=== PATIENT | female | born 1940 | race African-American/Black ===

== ENCOUNTER 2018-02-22 12:03 | Inpatient (IN) | payer MEDICARE, OTHER ==
[~2018-02-22] VITALS: Ht 170.2 cm; Wt 99.8 kg
[~2018-02-22 12:03] MED LIST: FUROSEMIDE20 M1 ORAL; GABAPENTIN100 MG ORAL
[2018-02-22 12:52] LABS: BASOPHILS % (AUTO) 2.3 % (0.0-2.0); EOSINOPHILS % (AUTO) 1.2 % (0.0-3.0); HEMATOCRIT 45.5 % (37.0-47.0); HEMOGLOBIN 14.7 G/DL (12.0-16.0); LYMPHOCYTES % (AUTO) 14.3 % (20.0-45.0); MEAN CORPUSCULAR VOLUME 87 FL (80-99); MONOCYTES % (AUTO) 11.5 % (1.0-10.0); NEUTROPHILS % (AUTO) 70.7 % (45.0-75.0); PLATELET COUNT 292 K/UL (150-450); RED BLOOD COUNT 5.26 M/UL (4.20-5.40); RED CELL DISTRIBUTION WIDTH 13.7 % (11.6-14.8); WHITE BLOOD COUNT 6.5 K/UL (4.8-10.8)
[2018-02-22 13:10] LABS: ANION GAP 8 mmol/L (5-15); BLOOD UREA NITROGEN 13 mg/dL (7-18); CALCIUM 9.9 MG/DL (8.5-10.1); CARBON DIOXIDE 33 MMOL/L (21-32); CHLORIDE 96 MMOL/L (98-107); CREATININE 1.3 MG/DL (0.55-1.30); POTASSIUM 3.1 MMOL/L (3.5-5.1); SODIUM 137 MMOL/L (136-145)
[2018-02-22] MEDS ORDERED: POTASSIUM CHLO10 ME3 ORAL (13:20)
[2018-02-22] MEDS ORDERED: GLIMEPIRIDE2 MG ORAL (13:20)
[2018-02-22] MEDS ORDERED: TRAMADOL HCL50 MG ORAL (13:20)
[2018-02-22] MEDS ORDERED: NAPROXEN CR500 MG PO (13:20)
[2018-02-22] MEDS ORDERED: GABAPENTIN300 MG ORAL (13:20)
[2018-02-22 13:21] VITALS: BP 143/75
[2018-02-22 13:26] LABS: ALANINE AMINOTRANSFERASE 22 U/L (12-78); ALBUMIN 3.9 G/DL (3.4-5.0); ALBUMIN/GLOBULIN RATIO 0.7 (1.0-2.7); ALKALINE PHOSPHATASE 109 U/L (46-116); ASPARTATE AMINO TRANSFERASE 19 U/L (15-37); BILIRUBIN,TOTAL 0.5 MG/DL (0.2-1.0); CKMB < 0.5 NG/ML (0.0-3.6); CREATINE KINASE 50 U/L (26-308); PHOSPHORUS 3.2 MG/DL (2.5-4.9)
[2018-02-22 13:48] LABS: APPEARANCE,URINE TURBID; BILIRUBIN, URINE NEGATIVE (NEGATIVE); COLOR,URINE PALE YELLOW; GLUCOSE, URINE (UA) NEGATIVE (NEGATIVE); KETONES,URINE NEGATIVE (NEGATIVE); LEUKOCYTE ESTERASE ,URINE 2+ (NEGATIVE); NITRITE,URINE POSITIVE (NEGATIVE); PH,URINE 6.5 (4.5-8.0); PROTEIN,URINE NEGATIVE (NEGATIVE); UROBILINOGEN,URINE NORMAL MG/DL (0.0-1.0)
--- NOTE | 2018-02-22 14:20 | Emergency Room Report ---
History of Present Illness General Chief Complaint: Generalized Weakness Source: Patient, Family Member, EMS Present Illness HPI This patient is accompanied by her daughter. The patient presents for generalized weakness. The daughter states that she noted that she was not her normal self this morning. She wasn't is articulate. Also, there was concern because when she attempted to stand up from the chair she was unable to get up secondary to weakness. The patient has no specific complaints. She denies chest pain or short of breath. She denies abdominal pain. She denies back pain. She denies dysuria. She is incontinent at baseline. She does have a history of CVA, diabetes and hypertension. She is normally able to ambulate with a cane. There are no other complaints. Allergies: Coded Allergies: CODEINE (Verified Allergy, Unknown, 02/22/18) SULFA (SULFONAMIDE ANTIBIOTICS) (Verified Allergy, Unknown, 02/22/18) Patient History Past Medical History: see triage record, DM, HTN, CVA/TIA, other - HLP Social History: Denies: smoking, alcohol use, drug use Reviewed Nursing Documentation: PMH: Agreed; PSxH: Agreed Nursing Documentation-PMH Hx Cardiac Problems: Yes - stroke Hx Diabetes: Yes Review of Systems All Other Systems: negative except mentioned in HPI Physical Exam Vital Signs Date Time Temp Pulse Resp B/P (MAP) Pulse Ox O2 Delivery O2 Flow Rate FiO2 02/22/18 11:59 98.3 100 16 137/78 100 Room Air 98.2 Sp02 EP Interpretation: reviewed, normal General Appearance: no apparent distress, alert, GCS 15, non-toxic Head: normocephalic, atraumatic Eyes: bilateral eye normal inspection, bilateral eye PERRL ENT: hearing grossly normal, normal pharynx, no angioedema, normal voice Neck: full range of motion, supple/symm/no masses Respiratory: chest non-tender, lungs clear, normal breath sounds, speaking full sentences Cardiovascular #1: regular rate, rhythm, no edema Gastrointestinal: normal bowel sounds, non tender, soft, non-distended, no guarding, no rebound Rectal: deferred Musculoskeletal: normal range of motion, non-tender Neurologic: alert, oriented x3, responsive, motor strength/tone normal, sensory intact, speech normal, other - Non-focal Psychiatric: judgement/insight normal, memory normal, mood/affect normal, no suicidal/homicidal ideation Skin: normal color, no rash, warm/dry, well hydrated Medical Decision Making Diagnostic Impression: Primary Impression: Pyelonephritis Additional Impression: Episode of generalized weakness ER Course This patient is found to have a urinary tract infection. Otherwise, she is well -appearing and nontoxic. She is given broad-spectrum antibiotics and IV fluids. The patient is unable to ambulate and is much weaker than usual. Given the patient's age and chronic medical conditions, I felt that this patient could deteriorate rapidly. I do not feel that she is a candidate for outpatient oral antibiotics. She is admitted for further evaluation, treatment and monitoring. Laboratory Tests Test 02/22/18 12:25 02/22/18 13:15 White Blood Count 6.5 K/UL (4.8-10.8) Red Blood Count 5.26 M/UL (4.20-5.40) Hemoglobin 14.7 G/DL (12.0-16.0) Hematocrit 45.5 % (37.0-47.0) Mean Corpuscular Volume 87 FL (80-99) Mean Corpuscular Hemoglobin 27.9 PG (27.0-31.0) Mean Corpuscular Hemoglobin Concent 32.2 G/DL (32.0-36.0) Red Cell Distribution Width 13.7 % (11.6-14.8) Platelet Count 292 K/UL (150-450) Mean Platelet Volume 11.3 FL (6.5-10.1) H Neutrophils (%) (Auto) 70.7 % (45.0-75.0) Lymphocytes (%) (Auto) 14.3 % (20.0-45.0) L Monocytes (%) (Auto) 11.5 % (1.0-10.0) H Eosinophils (%) (Auto) 1.2 % (0.0-3.0) Basophils (%) (Auto) 2.3 % (0.0-2.0) H Prothrombin Time 10.4 SEC (9.30-11.50) Prothrombin Time INR 1.0 (0.9-1.1) PTT 25 SEC (23-33) Sodium Level 137 MMOL/L (136-145) Potassium Level 3.1 MMOL/L (3.5-5.1) L Chloride Level 96 MMOL/L (98-107) L Carbon Dioxide Level 33 MMOL/L (21-32) H Anion Gap 8 mmol/L (5-15) Blood Urea Nitrogen 13 mg/dL (7-18) Creatinine 1.3 MG/DL (0.55-1.30) Estimate Glomerular Filtration Rate mL/min (>60) Glucose Level 125 MG/DL (74-106) H Lactic Acid Level 1.40 mmol/L (0.4-2.0) Calcium Level 9.9 MG/DL (8.5-10.1) Phosphorus Level 3.2 MG/DL (2.5-4.9) Magnesium Level 1.8 MG/DL (1.8-2.4) Total Bilirubin 0.5 MG/DL (0.2-1.0) Aspartate Amino Transferase (AST) 19 U/L (15-37) Alanine Aminotransferase (ALT) 22 U/L (12-78) Alkaline Phosphatase 109 U/L (46-116) Total Creatine Kinase 50 U/L (26-308) Creatine Kinase MB < 0.5 NG/ML (0.0-3.6) Creatine Kinase MB Relative Index 1.0 Troponin I 0.000 ng/mL (0.000-0.056) Total Protein 9.7 G/DL (6.4-8.2) H Albumin 3.9 G/DL (3.4-5.0) Globulin 5.8 g/dL Albumin/Globulin Ratio 0.7 (1.0-2.7) L Urine Color Pale yellow Urine Appearance Turbid Urine pH 6.5 (4.5-8.0) Urine Specific [place] 1.010 (1.005-1.035) Urine Protein Negative (NEGATIVE) Urine Glucose (UA) Negative (NEGATIVE) Urine Ketones Negative (NEGATIVE) Urine Occult Blood Negative (NEGATIVE) Urine Nitrite Positive (NEGATIVE) H Urine Bilirubin Negative (NEGATIVE) Urine Urobilinogen Normal MG/DL (0.0-1.0) Urine Leukocyte Esterase 2+ (NEGATIVE) H Urine RBC 2-4 /HPF (0 - 2) H Urine WBC Tntc /HPF (0 - 2) H Urine Squamous Epithelial Cells Few /LPF (NONE/OCC) Urine Bacteria Many /HPF (NONE) H EKG Diagnostic Results Rate: tachycardiac Rhythm: other - S.tachycardia ST Segments: no acute changes Rhythm Strip Diag. Results EP Interpretation: yes Rate: 100's Rhythm: no PVC's, no ectopy, other - S.tachycardia Last Vital Signs Date Time Temp Pulse Resp B/P (MAP) Pulse Ox O2 Delivery O2 Flow Rate FiO2 02/22/18 13:21 100 18 143/75 99 Room Air 02/22/18 11:59 98.3 98.2 Disposition: ADMITTED INPATIENT Condition: Serious Holly Crenshaw DO Feb 22, 2018 14:20
[2018-02-22] MEDS ORDERED: cefTRIAXone 1 GM in NS 55 ML IVPB ONE (14:30)
[2018-02-22 15:22] VITALS: BP 152/65
[2018-02-22 16:00] VITALS: BP 141/70
--- NOTE | 2018-02-22 16:45 | Diagnostic Imaging Report ---
Indication: Cough Technique: One view of the chest Comparison: none Findings: No acute infiltrates, effusions, or congestion. Tortuous calcified aorta. Normal heart size. Upper mediastinum unremarkable. Impression: No acute process.
[2018-02-22] MEDS ORDERED: HydrALAZINE 25mg tab ORAL PRN (17:30)
--- NOTE | 2018-02-22 17:35 | History and Physical ---
History of Present Illness General Date patient seen: Feb 22, 2018 Time patient seen: 17:25 Reason for Hospitalization: Generalized Weakness Present Illness HPI Patient is a 77 y/o female with a PMH of T2DM, HTN, h/o CVA in 2013 that presented to the ER for generalized weakness since today. Per family, patient woke up today with generalized weakness and lethargy, which was not at her baseline. Patient was further brought to the ED for this reason and was noted to have a UTI. EKG showed sinus tachycardia and initial troponin was negative. Patient was also noted to have increased bilateral lower extremity swelling for which she states she takes lasix for. Denies h/o CHF, ID. Denies cp, sob, n/v, abdominal pain, flank pain, d/c, f/c. Of note, patient was recently at [facility] for an infected boil to her buttocks last month and was given 10 days of PO ciprofloxacin and is now resolved. Allergies: Coded Allergies: CODEINE (Verified Allergy, Unknown, 02/22/18) SULFA (SULFONAMIDE ANTIBIOTICS) (Verified Allergy, Unknown, 02/22/18) Medication History Scheduled Furosemide* (Lasix*), 20 MG ORAL DAILY, (Reported) Gabapentin* (Gabapentin*), 300 MG ORAL BEDTIME, (Reported) Glimepiride (Glimepiride), 2 MG ORAL BEFORE BREAKFAST, (Reported) Potassium Chloride (Potassium Chloride), 10 MEQ ORAL TWICE A DAY, (Reported) Scheduled PRN Tramadol Hcl* (Ultram*), 50 MG ORAL Q6H PRN for For Pain, (Reported) Miscellaneous Medications Gabapentin* (Gabapentin*), MG ORAL, (Reported) Naproxen Sodium (Naproxen Cr), 500 MG PO, (Reported) Patient History Healthcare decision maker N Resuscitation status Full Code Advanced Directive on File Review of Systems All Other Systems: negative except mentioned in HPI Physical Exam General Appearance: no apparent distress, alert, lethargic HEENT: normocephalic, atraumatic Neck: non-tender, normal alignment, supple Respiratory/Chest: chest wall non-tender, lungs clear, normal breath sounds Cardiovascular/Chest: normal peripheral pulses, normal rate, regular rhythm Abdomen: normal bowel sounds, non tender, soft Extremities: normal range of motion, non-tender, normal inspection, moderate edema Skin Exam: normal pigmentation, warm/dry Neurologic: cd technician II-XII grossly normal, alert, oriented x 3, other - decreased motor strength 3/5 strength to BLE. 4/5 strength to BUE Last 24 Hour Vital Signs Date Time Temp Pulse Resp B/P (MAP) Pulse Ox O2 Delivery O2 Flow Rate FiO2 02/22/18 16:30 98.3 102 18 152/65 94 Room Air 98.2 02/22/18 15:22 102 18 152/65 94 Room Air 02/22/18 13:21 100 18 143/75 99 Room Air 02/22/18 11:59 98.3 100 16 137/78 100 Room Air 98.2 Laboratory Tests Test 02/22/18 12:25 02/22/18 13:15 White Blood Count 6.5 K/UL (4.8-10.8) Red Blood Count 5.26 M/UL (4.20-5.40) Hemoglobin 14.7 G/DL (12.0-16.0) Hematocrit 45.5 % (37.0-47.0) Mean Corpuscular Volume 87 FL (80-99) Mean Corpuscular Hemoglobin 27.9 PG (27.0-31.0) Mean Corpuscular Hemoglobin Concent 32.2 G/DL (32.0-36.0) Red Cell Distribution Width 13.7 % (11.6-14.8) Platelet Count 292 K/UL (150-450) Mean Platelet Volume 11.3 FL (6.5-10.1) H Neutrophils (%) (Auto) 70.7 % (45.0-75.0) Lymphocytes (%) (Auto) 14.3 % (20.0-45.0) L Monocytes (%) (Auto) 11.5 % (1.0-10.0) H Eosinophils (%) (Auto) 1.2 % (0.0-3.0) Basophils (%) (Auto) 2.3 % (0.0-2.0) H Prothrombin Time 10.4 SEC (9.30-11.50) Prothromb Time International Ratio 1.0 (0.9-1.1) Activated Partial Thromboplast Time 25 SEC (23-33) Sodium Level 137 MMOL/L (136-145) Potassium Level 3.1 MMOL/L (3.5-5.1) L Chloride Level 96 MMOL/L (98-107) L Carbon Dioxide Level 33 MMOL/L (21-32) H Anion Gap 8 mmol/L (5-15) Blood Urea Nitrogen 13 mg/dL (7-18) Creatinine 1.3 MG/DL (0.55-1.30) Estimat Glomerular Filtration Rate mL/min (>60) Glucose Level 125 MG/DL (74-106) H Lactic Acid Level 1.40 mmol/L (0.4-2.0) Calcium Level 9.9 MG/DL (8.5-10.1) Phosphorus Level 3.2 MG/DL (2.5-4.9) Magnesium Level 1.8 MG/DL (1.8-2.4) Total Bilirubin 0.5 MG/DL (0.2-1.0) Aspartate Amino Transf (AST/SGOT) 19 U/L (15-37) Alanine Aminotransferase (ALT/SGPT) 22 U/L (12-78) Alkaline Phosphatase 109 U/L (46-116) Total Creatine Kinase 50 U/L (26-308) Creatine Kinase MB < 0.5 NG/ML (0.0-3.6) Creatine Kinase MB Relative Index 1.0 Troponin I 0.000 ng/mL (0.000-0.056) Total Protein 9.7 G/DL (6.4-8.2) H Albumin 3.9 G/DL (3.4-5.0) Globulin 5.8 g/dL Albumin/Globulin Ratio 0.7 (1.0-2.7) L Urine Color Pale yellow Urine Appearance Turbid Urine pH 6.5 (4.5-8.0) Urine Specific [place] 1.010 (1.005-1.035) Urine Protein Negative (NEGATIVE) Urine Glucose (UA) Negative (NEGATIVE) Urine Ketones Negative (NEGATIVE) Urine Occult Blood Negative (NEGATIVE) Urine Nitrite Positive (NEGATIVE) H Urine Bilirubin Negative (NEGATIVE) Urine Urobilinogen Normal MG/DL (0.0-1.0) Urine Leukocyte Esterase 2+ (NEGATIVE) H Urine RBC 2-4 /HPF (0 - 2) H Urine WBC Tntc /HPF (0 - 2) H Urine Squamous Epithelial Cells Few /LPF (NONE/OCC) Urine Bacteria Many /HPF (NONE) H Height (Feet): 5 Height (Inches): 7.00 Weight (Pounds): 220 Assessment/Plan Problem List: (1) H/O: CVA (cerebrovascular accident) ICD Codes: Z86.73 - Personal history of transient ischemic attack (TIA), and cerebral infarction without residual deficits SNOMED: 930182425 (2) HTN (hypertension) ICD Codes: I10 - Essential (primary) hypertension SNOMED: 29965002 (3) T2DM (type 2 diabetes mellitus) ICD Codes: E11.9 - Type 2 diabetes mellitus without complications SNOMED: 11937612 (4) Edema of both legs ICD Codes: R60.0 - Localized edema SNOMED: 58395002, 51673106, 327652295 (5) Pyelonephritis ICD Codes: N12 - Tubulo-interstitial nephritis, not specified as acute or chronic SNOMED: 14002539 (6) Episode of generalized weakness ICD Codes: R53.1 - Weakness SNOMED: 12677572 (7) Peripheral neuropathy ICD Codes: G62.9 - Polyneuropathy, unspecified SNOMED: 165177823 Status: stable, progressing Assessment/Plan - Admit to inpatient - ID consulted - Empiric IV ceftriaxone - F/u urine cx - F/u blood cx - Check TTE - SSi - Check A1c, lipid panel, BNP - Continue home meds including lasix, glimepiride, and gabapentin - PT/OT eval DVT Prophylaxis: SCD, HSQ Code Status: Full Hospital Classification Declaration: Based on this initial evaluation, and depending on the patient's clinical course, I anticipate that this patient will require hospitalization for 2-3 days for pyelonephritis, edema and close respiratory/hemodynamic monitoring. Disposition: Once the patient is stable to leave the hospital, I anticipate the patient will likely be discharged to the following environment: home with HH and family I spent 72 minutes on this patient's case, and 39 minutes were dedicated to counseling and/or care coordination. Discussed with patient/family, nursing staff, SW/IVAN, ID regarding clinical status, treatment course, and disposition planning. Time of note may not reflect time of encounter. Nasra Arciniega NP Feb 22, 2018 17:35
[2018-02-22 20:00] VITALS: BP 133/67
[2018-02-22] MEDS: Heparin 5000 units/ml inj SUBQ SCH (20:36)
[2018-02-22] MEDS: NovoLOG Insulin Flexpen SUBQ SCH (20:37)
--- NOTE | 2018-02-22 20:38 | Infectious Diseases Prog Note ---
Assessment/Plan Assessment/Plan Full consult dictated: A) 1) uti, pyelonephritis, fevers 2) pmh noted 3) allergies - sulfa, codeine P) 1) rocephin 2) check urine culture 3) thank you Subjective Allergies: Coded Allergies: CODEINE (Verified Allergy, Unknown, 02/22/18) SULFA (SULFONAMIDE ANTIBIOTICS) (Verified Allergy, Unknown, 02/22/18) Objective Vital Signs Last 24 Hour Vital Signs Date Time Temp Pulse Resp B/P (MAP) Pulse Ox O2 Delivery O2 Flow Rate FiO2 02/22/18 16:30 98.3 102 18 152/65 94 Room Air 98.2 02/22/18 16:00 99.7 106 20 141/70 97 99.7 02/22/18 15:22 102 18 152/65 94 Room Air 02/22/18 13:21 100 18 143/75 99 Room Air 02/22/18 11:59 98.3 100 16 137/78 100 Room Air 98.2 Height (Feet): 5 Height (Inches): 7.00 Weight (Pounds): 220 Laboratory Tests Test 02/22/18 12:25 02/22/18 13:15 White Blood Count 6.5 K/UL (4.8-10.8) Red Blood Count 5.26 M/UL (4.20-5.40) Hemoglobin 14.7 G/DL (12.0-16.0) Hematocrit 45.5 % (37.0-47.0) Mean Corpuscular Volume 87 FL (80-99) Mean Corpuscular Hemoglobin 27.9 PG (27.0-31.0) Mean Corpuscular Hemoglobin Concent 32.2 G/DL (32.0-36.0) Red Cell Distribution Width 13.7 % (11.6-14.8) Platelet Count 292 K/UL (150-450) Mean Platelet Volume 11.3 FL (6.5-10.1) H Neutrophils (%) (Auto) 70.7 % (45.0-75.0) Lymphocytes (%) (Auto) 14.3 % (20.0-45.0) L Monocytes (%) (Auto) 11.5 % (1.0-10.0) H Eosinophils (%) (Auto) 1.2 % (0.0-3.0) Basophils (%) (Auto) 2.3 % (0.0-2.0) H Prothrombin Time 10.4 SEC (9.30-11.50) Prothromb Time International Ratio 1.0 (0.9-1.1) Activated Partial Thromboplast Time 25 SEC (23-33) Sodium Level 137 MMOL/L (136-145) Potassium Level 3.1 MMOL/L (3.5-5.1) L Chloride Level 96 MMOL/L (98-107) L Carbon Dioxide Level 33 MMOL/L (21-32) H Anion Gap 8 mmol/L (5-15) Blood Urea Nitrogen 13 mg/dL (7-18) Creatinine 1.3 MG/DL (0.55-1.30) Estimat Glomerular Filtration Rate mL/min (>60) Glucose Level 125 MG/DL (74-106) H Lactic Acid Level 1.40 mmol/L (0.4-2.0) Calcium Level 9.9 MG/DL (8.5-10.1) Phosphorus Level 3.2 MG/DL (2.5-4.9) Magnesium Level 1.8 MG/DL (1.8-2.4) Total Bilirubin 0.5 MG/DL (0.2-1.0) Aspartate Amino Transf (AST/SGOT) 19 U/L (15-37) Alanine Aminotransferase (ALT/SGPT) 22 U/L (12-78) Alkaline Phosphatase 109 U/L (46-116) Total Creatine Kinase 50 U/L (26-308) Creatine Kinase MB < 0.5 NG/ML (0.0-3.6) Creatine Kinase MB Relative Index 1.0 Troponin I 0.000 ng/mL (0.000-0.056) Total Protein 9.7 G/DL (6.4-8.2) H Albumin 3.9 G/DL (3.4-5.0) Globulin 5.8 g/dL Albumin/Globulin Ratio 0.7 (1.0-2.7) L Urine Color Pale yellow Urine Appearance Turbid Urine pH 6.5 (4.5-8.0) Urine Specific [place] 1.010 (1.005-1.035) Urine Protein Negative (NEGATIVE) Urine Glucose (UA) Negative (NEGATIVE) Urine Ketones Negative (NEGATIVE) Urine Occult Blood Negative (NEGATIVE) Urine Nitrite Positive (NEGATIVE) H Urine Bilirubin Negative (NEGATIVE) Urine Urobilinogen Normal MG/DL (0.0-1.0) Urine Leukocyte Esterase 2+ (NEGATIVE) H Urine RBC 2-4 /HPF (0 - 2) H Urine WBC Tntc /HPF (0 - 2) H Urine Squamous Epithelial Cells Few /LPF (NONE/OCC) Urine Bacteria Many /HPF (NONE) H Current Medications Medications (Trade) Dose Ordered Sig/Farnaz Route PRN Reason Start Time Stop Time Status Last Admin Dose Admin Acetaminophen (Tylenol) 650 mg Q6H PRN ORAL Mild Pain/Temp > 100.5 02/22/18 17:30 03/24/18 17:29 Ceftriaxone Sodium 1 gm/ Dextrose 110 ml @ 220 mls/hr Q24H IVPB 02/23/18 14:00 03/02/18 13:59 Dextrose (Dextrose 50%) 25 ml STAT PRN IV Hypoglycemia 02/22/18 18:00 03/24/18 17:59 Dextrose (Dextrose 50%) 50 ml STAT PRN IV Hypoglycemia 02/22/18 18:00 03/24/18 17:59 Furosemide (Lasix) 20 mg DAILY ORAL 02/23/18 09:00 03/25/18 08:59 Gabapentin (Neurontin) 300 mg BEDTIME ORAL 02/22/18 21:00 03/24/18 20:59 Glimepiride (Amaryl) 2 mg ACBREAKFAST ORAL 02/23/18 06:30 03/25/18 06:29 Heparin Sodium (Porcine) (Heparin 5000 units/ml) 5,000 units EVERY 12 HOURS SUBQ 02/22/18 21:00 03/24/18 20:59 Hydralazine HCl (Apresoline) 25 mg Q6H PRN ORAL SBP > 160mmHg 02/22/18 17:30 03/24/18 17:29 Insulin Aspart (NovoLOG) BEFORE MEALS AND HS SUBQ 02/22/18 21:00 03/24/18 20:59 Potassium Chloride (K-Dur) 10 meq TWICE A DAY ORAL 02/22/18 18:00 03/24/18 17:59 02/22/18 18:10 Sodium Chloride 1,000 ml @ 75 mls/hr [id number] IV 02/22/18 18:00 03/24/18 17:59 02/22/18 18:10 Lucho Friedman MD Feb 22, 2018 20:38
--- NOTE | 2018-02-22 22:02 | Consultation ---
History of Present Illness General Date patient seen: Feb 22, 2018 Chief Complaint: Generalized Weakness Present Illness HPI 77 y/o female with a PMH of T2DM, HTN, CVApresented to the ER for generalized weakness and lethargy. the pt had waxing and waning of consciousness however she has cleared up and was lucid during my evaluation Allergies: Coded Allergies: CODEINE (Verified Allergy, Unknown, 02/22/18) SULFA (SULFONAMIDE ANTIBIOTICS) (Verified Allergy, Unknown, 02/22/18) Medication History Scheduled Furosemide* (Lasix*), 20 MG ORAL DAILY, (Reported) Gabapentin* (Gabapentin*), 300 MG ORAL BEDTIME, (Reported) Glimepiride (Glimepiride), 2 MG ORAL BEFORE BREAKFAST, (Reported) Potassium Chloride (Potassium Chloride), 10 MEQ ORAL TWICE A DAY, (Reported) Scheduled PRN Tramadol Hcl* (Ultram*), 50 MG ORAL Q6H PRN for For Pain, (Reported) Miscellaneous Medications Gabapentin* (Gabapentin*), MG ORAL, (Reported) Naproxen Sodium (Naproxen Cr), 500 MG PO, (Reported) Patient History Limited by: medical condition History Provided By: Patient, Medical Record Healthcare decision maker N Resuscitation status Full Code Advanced Directive on File Past Medical/Surgical History Past Medical/Surgical History: (1) Pyelonephritis (2) HTN (hypertension) (3) Edema of both legs (4) T2DM (type 2 diabetes mellitus) (5) Episode of generalized weakness (6) H/O: CVA (cerebrovascular accident) (7) Peripheral neuropathy Review of Systems Psychiatric: Reports: prior hx, anxiety Physical Exam General Appearance: no apparent distress, alert Neurologic: oriented x 3, responsive Last 24 Hour Vital Signs Date Time Temp Pulse Resp B/P (MAP) Pulse Ox O2 Delivery O2 Flow Rate FiO2 02/22/18 20:00 98.7 101 17 133/67 95 Room Air 98.7 02/22/18 16:30 98.3 102 18 152/65 94 Room Air 98.2 02/22/18 16:00 99.7 106 20 141/70 97 99.7 02/22/18 15:22 102 18 152/65 94 Room Air 02/22/18 13:21 100 18 143/75 99 Room Air 02/22/18 11:59 98.3 100 16 137/78 100 Room Air 98.2 Laboratory Tests Test 02/22/18 12:25 02/22/18 13:15 White Blood Count 6.5 K/UL (4.8-10.8) Red Blood Count 5.26 M/UL (4.20-5.40) Hemoglobin 14.7 G/DL (12.0-16.0) Hematocrit 45.5 % (37.0-47.0) Mean Corpuscular Volume 87 FL (80-99) Mean Corpuscular Hemoglobin 27.9 PG (27.0-31.0) Mean Corpuscular Hemoglobin Concent 32.2 G/DL (32.0-36.0) Red Cell Distribution Width 13.7 % (11.6-14.8) Platelet Count 292 K/UL (150-450) Mean Platelet Volume 11.3 FL (6.5-10.1) H Neutrophils (%) (Auto) 70.7 % (45.0-75.0) Lymphocytes (%) (Auto) 14.3 % (20.0-45.0) L Monocytes (%) (Auto) 11.5 % (1.0-10.0) H Eosinophils (%) (Auto) 1.2 % (0.0-3.0) Basophils (%) (Auto) 2.3 % (0.0-2.0) H Prothrombin Time 10.4 SEC (9.30-11.50) Prothromb Time International Ratio 1.0 (0.9-1.1) Activated Partial Thromboplast Time 25 SEC (23-33) Sodium Level 137 MMOL/L (136-145) Potassium Level 3.1 MMOL/L (3.5-5.1) L Chloride Level 96 MMOL/L (98-107) L Carbon Dioxide Level 33 MMOL/L (21-32) H Anion Gap 8 mmol/L (5-15) Blood Urea Nitrogen 13 mg/dL (7-18) Creatinine 1.3 MG/DL (0.55-1.30) Estimat Glomerular Filtration Rate mL/min (>60) Glucose Level 125 MG/DL (74-106) H Lactic Acid Level 1.40 mmol/L (0.4-2.0) Calcium Level 9.9 MG/DL (8.5-10.1) Phosphorus Level 3.2 MG/DL (2.5-4.9) Magnesium Level 1.8 MG/DL (1.8-2.4) Total Bilirubin 0.5 MG/DL (0.2-1.0) Aspartate Amino Transf (AST/SGOT) 19 U/L (15-37) Alanine Aminotransferase (ALT/SGPT) 22 U/L (12-78) Alkaline Phosphatase 109 U/L (46-116) Total Creatine Kinase 50 U/L (26-308) Creatine Kinase MB < 0.5 NG/ML (0.0-3.6) Creatine Kinase MB Relative Index 1.0 Troponin I 0.000 ng/mL (0.000-0.056) Total Protein 9.7 G/DL (6.4-8.2) H Albumin 3.9 G/DL (3.4-5.0) Globulin 5.8 g/dL Albumin/Globulin Ratio 0.7 (1.0-2.7) L Urine Color Pale yellow Urine Appearance Turbid Urine pH 6.5 (4.5-8.0) Urine Specific [place] 1.010 (1.005-1.035) Urine Protein Negative (NEGATIVE) Urine Glucose (UA) Negative (NEGATIVE) Urine Ketones Negative (NEGATIVE) Urine Occult Blood Negative (NEGATIVE) Urine Nitrite Positive (NEGATIVE) H Urine Bilirubin Negative (NEGATIVE) Urine Urobilinogen Normal MG/DL (0.0-1.0) Urine Leukocyte Esterase 2+ (NEGATIVE) H Urine RBC 2-4 /HPF (0 - 2) H Urine WBC Tntc /HPF (0 - 2) H Urine Squamous Epithelial Cells Few /LPF (NONE/OCC) Urine Bacteria Many /HPF (NONE) H Height (Feet): 5 Height (Inches): 7.00 Weight (Pounds): 220 Medications Current Medications Medications (Trade) Dose Ordered Sig/Farnaz Route PRN Reason Start Time Stop Time Status Last Admin Dose Admin Acetaminophen (Tylenol) 650 mg Q6H PRN ORAL Mild Pain/Temp > 100.5 02/22/18 17:30 03/24/18 17:29 Ceftriaxone Sodium 1 gm/ Dextrose 110 ml @ 220 mls/hr Q24H IVPB 02/23/18 14:00 03/02/18 13:59 Dextrose (Dextrose 50%) 25 ml STAT PRN IV Hypoglycemia 02/22/18 18:00 03/24/18 17:59 Dextrose (Dextrose 50%) 50 ml STAT PRN IV Hypoglycemia 02/22/18 18:00 03/24/18 17:59 Furosemide (Lasix) 20 mg DAILY ORAL 02/23/18 09:00 03/25/18 08:59 Gabapentin (Neurontin) 300 mg BEDTIME ORAL 02/22/18 21:00 03/24/18 20:59 02/22/18 20:35 Glimepiride (Amaryl) 2 mg ACBREAKFAST ORAL 02/23/18 06:30 03/25/18 06:29 Heparin Sodium (Porcine) (Heparin 5000 units/ml) 5,000 units EVERY 12 HOURS SUBQ 02/22/18 21:00 03/24/18 20:59 02/22/18 20:36 Hydralazine HCl (Apresoline) 25 mg Q6H PRN ORAL SBP > 160mmHg 02/22/18 17:30 03/24/18 17:29 Insulin Aspart (NovoLOG) BEFORE MEALS AND HS SUBQ 02/22/18 21:00 03/24/18 20:59 02/22/18 20:37 Potassium Chloride (K-Dur) 10 meq TWICE A DAY ORAL 02/22/18 18:00 03/24/18 17:59 02/22/18 18:10 Sodium Chloride 1,000 ml @ 75 mls/hr [id number] IV 02/22/18 18:00 03/24/18 17:59 02/22/18 18:10 Assessment/Plan Status: stable, progressing Assessment/Plan encephalopathy anxiety -no meds -will reeval Susanne Neal M.D. Feb 22, 2018 22:02
[2018-02-23] VITALS: BP 144/71
--- NOTE | 2018-02-23 03:30 | Consultation ---
DATE OF CONSULTATION: 02/22/2018 INFECTIOUS DISEASE CONSULTATION CONSULTING PHYSICIAN: Lucho Friedman M.D. ATTENDING PHYSICIAN: Adelfo Hooper M.D. REFERRING PHYSICIAN: Adelfo Hooper M.D. REASON FOR CONSULTATION: Pyelonephritis, urinary tract infection, generalized weakness, and fevers. CHIEF COMPLAINT: The patient's chief complaint coming in to the hospital is generalized weakness unable to ambulate. HISTORY OF PRESENT ILLNESS: This is a 77-year-old female, who comes in to [facility] with generalized weakness and decreased gait or inability to ambulate. The patient was noted to have a significantly positive urinalysis likely has urinary tract infection, pyelonephritis, and fevers. The patient also had elevated heart rate and possible early sepsis. Infectious Disease consultation is requested for antibiotic management. The patient is currently on Rocephin 1 g IV q.24 hours. Urine culture is pending. The patient's urinalysis had too many to count white blood cells. I discussed with the patient. She has generalized weakness. Brother was not a very good historian. MAR was noted. Orders were noted. Notes were reviewed. Case was discussed with RN. Case was communicated with Cass Sky, nurse practitioner. REVIEW OF SYSTEMS: CONSTITUTIONAL: She has generalized fatigue, weakness, unable to ambulate. HEAD AND NECK: No head pain, neck pain, thrush, dysphagia, or sinus tenderness. No change in vision. No sinus tenderness. No weight loss or night sweats. She does have fevers. No chills at this time. CARDIAC: No chest pain or palpitations. GASTROINTESTINAL: No nausea, vomiting, or diarrhea. GENITOURINARY: She has may be some dysuria with no CVA tenderness. May be some frequency of urination. PULMONARY: No congestion, shortness of breath, hemoptysis, or secretions. SKIN: No rash or itching. EXTREMITIES: No extremity pain. NEUROLOGIC: No seizures. PAST MEDICAL HISTORY: The patient's past medical history includes history of the following. The patient has a past medical history of type 2 diabetes mellitus, history of hypertension, history of CVA, history of transient ischemic attack, and history of hyperlipidemia. ALLERGIES: Codeine and sulfa drugs. SOCIAL HISTORY: Negative for smoking, alcohol, or drug abuse. FAMILY HISTORY: Noncontributory. No mention of exposure to tuberculosis or cancer per the records. MEDICATIONS: Upon reviewing the MAR, she is on the following medications, she is on Rocephin, furosemide, Amaryl, heparin, Neurontin, NovoLog insulin, K-Dur, intravenous fluids, hydralazine, aand acetaminophen. Outside medications noted and reconciliated. Antibiotics include Rocephin 1 g intravenous q.24 hours. PHYSICAL EXAMINATION: VITAL SIGNS: Temperature is 99.7, pulse rate as high as 106, respiratory rate is 18, saturation 94%, and blood pressure 152/65. Pulse 72, temperature 98.3. GENERAL: She is arousable and responsive. She has generalized weakness. HEAD AND NECK: Oral exam, no thrush. Eye exam, no icterus. Cranial nerve exam is intact. No jugular venous distention. Normocephalic. Neck is supple. No icterus or thrush. HEART: Regular. No obvious gallop or murmur. No friction rub. ABDOMEN: Soft. Positive bowel sounds. Nontender. No organomegaly. LUNGS: Clear bilaterally. No rhonchi or rales. SKIN: No rash. MUSCULOSKELETAL: No effusion. Legs are without cellulitis. PERIPHERAL VASCULAR: No cyanosis or gangrene. GENITOURINARY: She has no CVA tenderness. No Salazar. LINES: Line sites without phlebitis. NEUROLOGIC: Generalized weakness and responsive. LABORATORY AND DIAGNOSTIC DATA: Laboratory data is as follows, potassium 3.1, creatinine 1.3. LFTs were noted. White count 6.5, hemoglobin 14.7. UA had 2+ leukocyte esterase, too many to count white blood cells, and many bacteria. Cultures are pending. IMAGING STUDIES: The patient's chest x-ray shows no pneumonia, no consolidation. No acute process noted reviewed. ASSESSMENT AND PLAN: 1. The patient has urinary tract infection/pyelonephritis, and complicated urinary tract infection with generalized weakness. She also came in with lethargy and weakness, rule out early sepsis with tachycardia and fevers. At this time, I agree with Rocephin 1 g intravenous q.24 h. for Gram-negative urinary tract infection coverage. Check urine culture. Watch laboratories. Watch the patient's mental status. Check blood cultures also. Case was discussed with the RN. Continue Rocephin 1 g intravenous q.24 hours pending final workup. 2. The patient has history of diabetes type 2. Blood sugar treatment per primary. 3. Hypertension. Blood pressure treatment per primary. 4. CVA. 5. TIA 6. Hyperlipidemia. 7. Hypokalemia. 8. Allergy to codeine and sulfa. 9. MAR was noted. 10. Case was discussed with RN. 11. Social history is negative. 12. Family history is noncontributory. 13. Case will be discussed with Cass Sky, nurse practitioner. 14. Skin care protocol. 15. Continue treatment per primary consultants. 16. Orders were entered and noted. Lucho Friedman M.D. DR: DEMIAN JOB#: [id number] CC: JAMIE
[2018-02-23 04:00] VITALS: BP 131/67
[2018-02-23] MEDS: Glimepiride 1mg tab ORAL SCH (05:54)
[2018-02-23] MEDS: NovoLOG Insulin Flexpen SUBQ SCH ×4 (05:55→21:20)
[2018-02-23 06:47] LABS: BASOPHILS % (AUTO) 2.5 % (0.0-2.0); EOSINOPHILS % (AUTO) 1.6 % (0.0-3.0); HEMATOCRIT 35.9 % (37.0-47.0); HEMOGLOBIN 11.6 G/DL (12.0-16.0); LYMPHOCYTES % (AUTO) 40.8 % (20.0-45.0); MEAN CORPUSCULAR VOLUME 87 FL (80-99); MONOCYTES % (AUTO) 17.4 % (1.0-10.0); NEUTROPHILS % (AUTO) 37.6 % (45.0-75.0); PLATELET COUNT 204 K/UL (150-450); RED BLOOD COUNT 4.12 M/UL (4.20-5.40); WHITE BLOOD COUNT 3.8 K/UL (4.8-10.8)
[2018-02-23 07:15] LABS: ANION GAP 7 mmol/L (5-15); BLOOD UREA NITROGEN 9 mg/dL (7-18); CALCIUM 8.4 MG/DL (8.5-10.1); CARBON DIOXIDE 31 MMOL/L (21-32); CHLORIDE 101 MMOL/L (98-107); CHOLESTEROL 184 MG/DL (< 200); CREATININE 1.1 MG/DL (0.55-1.30); HDL CHOLESTEROL 44 MG/DL (40-60); POTASSIUM 2.9 MMOL/L (3.5-5.1); SODIUM 139 MMOL/L (136-145); TRIGLYCERIDES 72 MG/DL (30-150)
[2018-02-23 08:00] VITALS: BP 118/63
[2018-02-23] MEDS: Heparin 5000 units/ml inj SUBQ SCH ×2 (09:07→21:20)
--- NOTE | 2018-02-23 11:41 | General Progress Note ---
Assessment/Plan Assessment/Plan encephalopathy anxiety -no meds -will reeval Subjective Date patient seen: Feb 23, 2018 Neurologic/Psychiatric: Reports: anxiety, emotional problems Allergies: Coded Allergies: CODEINE (Verified Allergy, Unknown, 02/22/18) SULFA (SULFONAMIDE ANTIBIOTICS) (Verified Allergy, Unknown, 02/22/18) Subjective the pt is calm and more lucid. participated in pt Objective Last 24 Hour Vital Signs Date Time Temp Pulse Resp B/P (MAP) Pulse Ox O2 Delivery O2 Flow Rate FiO2 02/23/18 04:00 98.9 97 17 131/67 96 Room Air 98.9 02/23/18 00:00 98.3 94 16 144/71 95 Room Air 98.3 02/22/18 20:00 98.7 101 17 133/67 95 Room Air 98.7 02/22/18 16:30 98.3 102 18 152/65 94 Room Air 98.2 02/22/18 16:00 99.7 106 20 141/70 97 99.7 02/22/18 15:22 102 18 152/65 94 Room Air 02/22/18 13:21 100 18 143/75 99 Room Air 02/22/18 11:59 98.3 100 16 137/78 100 Room Air 98.2 Intake and Output 02/22/18 02/23/18 19:00 07:00 Intake Total 1130 ml 945 ml Balance 1130 ml 945 ml Intake Oral 0 ml 120 ml IV Total 1130 ml 825 ml # Voids 2 Laboratory Tests 02/22/18 12:25: White Blood Count 6.5, Red Blood Count 5.26, Hemoglobin 14.7, Hematocrit 45.5, Mean Corpuscular Volume 87, Mean Corpuscular Hemoglobin 27.9, Mean Corpuscular Hemoglobin Concent 32.2, Red Cell Distribution Width 13.7, Platelet Count 292, Mean Platelet Volume 11.3H, Neutrophils (%) (Auto) 70.7, Lymphocytes (%) (Auto) 14.3L, Monocytes (%) (Auto) 11.5H, Eosinophils (%) (Auto) 1.2, Basophils (%) ( Auto) 2.3H, Prothrombin Time 10.4, Prothromb Time International Ratio 1.0, Activated Partial Thromboplast Time 25, Sodium Level 137, Potassium Level 3.1L, Chloride Level 96L, Carbon Dioxide Level 33H, Anion Gap 8, Blood Urea Nitrogen 13, Creatinine 1.3, Estimat Glomerular Filtration Rate , Glucose Level 125H, Lactic Acid Level 1.40, Calcium Level 9.9, Phosphorus Level 3.2, Magnesium Level 1.8, Total Bilirubin 0.5, Aspartate Amino Transf (AST/SGOT) 19, Alanine Aminotransferase (ALT/SGPT) 22, Alkaline Phosphatase 109, Total Creatine Kinase 50, Creatine Kinase MB < 0.5, Creatine Kinase MB Relative Index 1.0, Troponin I 0.000, Total Protein 9.7H, Albumin 3.9, Globulin 5.8, Albumin/Globulin Ratio 0.7L 02/22/18 13:15: Urine Color Pale yellow, Urine Appearance Turbid, Urine pH 6.5, Urine Specific [place] 1.010, Urine Protein Negative, Urine Glucose (UA) Negative, Urine Ketones Negative, Urine Occult Blood Negative, Urine Nitrite PositiveH, Urine Bilirubin Negative, Urine Urobilinogen Normal, Urine Leukocyte Esterase 2+H, Urine RBC 2-4H, Urine WBC TntcH, Urine Squamous Epithelial Cells Few, Urine Bacteria ManyH 02/23/18 05:25: White Blood Count 3.8L, Red Blood Count 4.12L, Hemoglobin 11.6L, Hematocrit 35.9L, Mean Corpuscular Volume 87, Mean Corpuscular Hemoglobin 28.0, Mean Corpuscular Hemoglobin Concent 32.2, Red Cell Distribution Width 14.0, Platelet Count 204, Mean Platelet Volume 9.7, Neutrophils (%) (Auto) 37.6L, Lymphocytes ( %) (Auto) 40.8, Monocytes (%) (Auto) 17.4H, Eosinophils (%) (Auto) 1.6, Basophils (%) (Auto) 2.5H, Sodium Level 139, Potassium Level 2.9L, Chloride Level 101, Carbon Dioxide Level 31, Anion Gap 7, Blood Urea Nitrogen 9, Creatinine 1.1, Estimat Glomerular Filtration Rate , Glucose Level 119H, Calcium Level 8.4L, Hemoglobin A1c 8.6H, Pro-B-Type Natriuretic Peptide 216H, Triglycerides Level 72, Cholesterol Level 184, LDL Cholesterol 137H, HDL Cholesterol 44, Cholesterol/HDL Ratio 4.2 Height (Feet): 5 Height (Inches): 7.00 Weight (Pounds): 220 General Appearance: WD/WN, no apparent distress, alert Neurologic: oriented x 3, responsive, depressed affect Susanne Neal M.D. Feb 23, 2018 11:41
[2018-02-23 12:00] VITALS: BP 126/73
--- NOTE | 2018-02-23 13:18 | Infectious Diseases Prog Note ---
Assessment/Plan Assessment/Plan ASSESSMENT AND PLAN: 1. uti/pyelonephritis, possible sepsis, lethargy, generalized weakness - clinically more alert, fevers resolved - continue Rocephin - day # 2 - check urine culture, blood cultures, labs 2. The patient has history of diabetes type 2. Blood sugar treatment per primary. 3. Hypertension. Blood pressure treatment per primary. 4. CVA. 5. TIA 6. Hyperlipidemia. 7. Hypokalemia. 8. Allergy to codeine and sulfa. 9. MAR was noted. 10. Case was discussed with RN. 11. Social history is negative. 12. Family history is noncontributory. 13. Discussed with Nasra Arciniega NP 14. Skin care protocol. 15. Continue treatment per primary consultants. 16. Orders were entered and noted. Subjective Constitutional: Reports: fatigue, other - moer alert; Denies: fever HEENT: Denies: congestion Respiratory: Denies: shortness of breath Cardiovascular: Denies: chest pain Gastrointestinal/Abdominal: Denies: nausea, vomiting, diarrhea Genitourinary: Reports: other - no linda Neurologic: Reports: weakness - general weakness; Denies: headache Psychiatric: Denies: depression Skin: Denies: rash Hematologic: Denies: bleeding Musculoskeletal: Denies: pain Allergies: Coded Allergies: CODEINE (Verified Allergy, Unknown, 02/22/18) SULFA (SULFONAMIDE ANTIBIOTICS) (Verified Allergy, Unknown, 02/22/18) Objective Vital Signs Last 24 Hour Vital Signs Date Time Temp Pulse Resp B/P (MAP) Pulse Ox O2 Delivery O2 Flow Rate FiO2 02/23/18 04:00 98.9 97 17 131/67 96 Room Air 98.9 02/23/18 00:00 98.3 94 16 144/71 95 Room Air 98.3 02/22/18 20:00 98.7 101 17 133/67 95 Room Air 98.7 02/22/18 16:30 98.3 102 18 152/65 94 Room Air 98.2 02/22/18 16:00 99.7 106 20 141/70 97 99.7 02/22/18 15:22 102 18 152/65 94 Room Air 02/22/18 13:21 100 18 143/75 99 Room Air Height (Feet): 5 Height (Inches): 7.00 Weight (Pounds): 220 General Appearance: no acute distress, other - more alert HEENT: normocephalic, atraumatic, anicteric, mucous membranes moist Respiratory/Chest: lungs clear, normal breath sounds, no respiratory distress, no accessory muscle use Cardiovascular: normal rate, regular rhythm, no gallop/murmur, no JVD Abdomen: normal bowel sounds, soft, non tender, no organomegaly, non distended Genitourinary: other - no sob Extremities: no cyanosis Skin: no rash Neurologic/Psychiatric: hyperbaric technologist II-XII grossly normal, alert, responsive Lymphatic: no neck adenopathy Musculoskeletal: no effusion Objective Chest x-ray - NAD (reviewed, report noted) Pending Laboratory Tests Test 02/22/18 13:15 02/23/18 05:25 Urine Color Pale yellow Urine Appearance Turbid Urine pH 6.5 (4.5-8.0) Urine Specific [place] 1.010 (1.005-1.035) Urine Protein Negative (NEGATIVE) Urine Glucose (UA) Negative (NEGATIVE) Urine Ketones Negative (NEGATIVE) Urine Occult Blood Negative (NEGATIVE) Urine Nitrite Positive (NEGATIVE) H Urine Bilirubin Negative (NEGATIVE) Urine Urobilinogen Normal MG/DL (0.0-1.0) Urine Leukocyte Esterase 2+ (NEGATIVE) H Urine RBC 2-4 /HPF (0 - 2) H Urine WBC Tntc /HPF (0 - 2) H Urine Squamous Epithelial Cells Few /LPF (NONE/OCC) Urine Bacteria Many /HPF (NONE) H White Blood Count 3.8 K/UL (4.8-10.8) L Red Blood Count 4.12 M/UL (4.20-5.40) L Hemoglobin 11.6 G/DL (12.0-16.0) L Hematocrit 35.9 % (37.0-47.0) L Mean Corpuscular Volume 87 FL (80-99) Mean Corpuscular Hemoglobin 28.0 PG (27.0-31.0) Mean Corpuscular Hemoglobin Concent 32.2 G/DL (32.0-36.0) Red Cell Distribution Width 14.0 % (11.6-14.8) Platelet Count 204 K/UL (150-450) Mean Platelet Volume 9.7 FL (6.5-10.1) Neutrophils (%) (Auto) 37.6 % (45.0-75.0) L Lymphocytes (%) (Auto) 40.8 % (20.0-45.0) Monocytes (%) (Auto) 17.4 % (1.0-10.0) H Eosinophils (%) (Auto) 1.6 % (0.0-3.0) Basophils (%) (Auto) 2.5 % (0.0-2.0) H Sodium Level 139 MMOL/L (136-145) Potassium Level 2.9 MMOL/L (3.5-5.1) L Chloride Level 101 MMOL/L (98-107) Carbon Dioxide Level 31 MMOL/L (21-32) Anion Gap 7 mmol/L (5-15) Blood Urea Nitrogen 9 mg/dL (7-18) Creatinine 1.1 MG/DL (0.55-1.30) Estimat Glomerular Filtration Rate mL/min (>60) Glucose Level 119 MG/DL (74-106) H Hemoglobin A1c 8.6 % (4.3-6.0) H Calcium Level 8.4 MG/DL (8.5-10.1) L Pro-B-Type Natriuretic Peptide 216 pg/mL (0-125) H Triglycerides Level 72 MG/DL (30-150) Cholesterol Level 184 MG/DL (< 200) LDL Cholesterol 137 mg/dL (<100) H HDL Cholesterol 44 MG/DL (40-60) Cholesterol/HDL Ratio 4.2 (3.3-4.4) Current Medications Medications (Trade) Dose Ordered Sig/Farnaz Route PRN Reason Start Time Stop Time Status Last Admin Dose Admin Acetaminophen (Tylenol) 650 mg Q6H PRN ORAL Mild Pain/Temp > 100.5 02/22/18 17:30 03/24/18 17:29 Ceftriaxone Sodium 1 gm/ Dextrose 110 ml @ 220 mls/hr Q24H IVPB 02/23/18 14:00 03/02/18 13:59 Dextrose (Dextrose 50%) 25 ml STAT PRN IV Hypoglycemia 02/22/18 18:00 03/24/18 17:59 Dextrose (Dextrose 50%) 50 ml STAT PRN IV Hypoglycemia 02/22/18 18:00 03/24/18 17:59 Furosemide (Lasix) 20 mg DAILY ORAL 02/23/18 09:00 03/25/18 08:59 02/23/18 09:06 Gabapentin (Neurontin) 300 mg BEDTIME ORAL 02/22/18 21:00 03/24/18 20:59 02/22/18 20:35 Glimepiride (Amaryl) 2 mg ACBREAKFAST ORAL 02/23/18 06:30 03/25/18 06:29 02/23/18 05:54 Heparin Sodium (Porcine) (Heparin 5000 units/ml) 5,000 units EVERY 12 HOURS SUBQ 02/22/18 21:00 03/24/18 20:59 02/23/18 09:07 Hydralazine HCl (Apresoline) 25 mg Q6H PRN ORAL SBP > 160mmHg 02/22/18 17:30 03/24/18 17:29 Insulin Aspart (NovoLOG) BEFORE MEALS AND HS SUBQ 02/22/18 21:00 03/24/18 20:59 02/23/18 05:55 Potassium Chloride (K-Dur) 10 meq TWICE A DAY ORAL 02/22/18 18:00 03/24/18 17:59 02/23/18 09:07 Sodium Chloride 1,000 ml @ 75 mls/hr [id number] IV 02/22/18 18:00 03/24/18 17:59 02/22/18 18:10 Lucho Friedman MD Feb 23, 2018 13:18
[2018-02-23] MEDS: cefTRIAXone 1 GM in D5W 110 ML IVPB SCH (13:40)
--- NOTE | 2018-02-23 15:40 | General Progress Note ---
Assessment/Plan Problem List: (1) H/O: CVA (cerebrovascular accident) ICD Codes: Z86.73 - Personal history of transient ischemic attack (TIA), and cerebral infarction without residual deficits SNOMED: 455485489 (2) HTN (hypertension) ICD Codes: I10 - Essential (primary) hypertension SNOMED: 48491805 (3) T2DM (type 2 diabetes mellitus) ICD Codes: E11.9 - Type 2 diabetes mellitus without complications SNOMED: 37657174 (4) Edema of both legs ICD Codes: R60.0 - Localized edema SNOMED: 84222611, 23428072, 703133895 (5) Pyelonephritis ICD Codes: N12 - Tubulo-interstitial nephritis, not specified as acute or chronic SNOMED: 47989097 (6) Episode of generalized weakness ICD Codes: R53.1 - Weakness SNOMED: 22911665 (7) Peripheral neuropathy ICD Codes: G62.9 - Polyneuropathy, unspecified SNOMED: 967919225 (8) HLD (hyperlipidemia) ICD Codes: E78.5 - Hyperlipidemia, unspecified SNOMED: 98888978 Status: stable, progressing Assessment/Plan - ID consulted, appreciate rec's - Empiric IV ceftriaxone - F/u urine cx - F/u blood cx - Check TTE - BNP 221 - venous duplex negative for DVT in BLE - SSi - Check A1c 8.4 -- will start metformin upon discharge - LDL 137. Will start atorvastatin 80mg given h/o CVA and high LDL - Continue home meds including lasix, glimepiride, and gabapentin - PT/OT eval DVT Prophylaxis: SCD, HSQ Code Status: Full Hospital Classification Declaration: Based on this initial evaluation, and depending on the patient's clinical course, I anticipate that this patient will require hospitalization for 2-3 days for pyelonephritis, edema and close respiratory/hemodynamic monitoring. Disposition: Once the patient is stable to leave the hospital, I anticipate the patient will likely be discharged to the following environment: home with HH and family I spent 32 minutes on this patient's case, and 19 minutes were dedicated to counseling and/or care coordination. Discussed with patient/family, nursing staff, SW/CM, ID regarding clinical status, treatment course, and disposition planning. Time of note may not reflect time of encounter. Subjective Date patient seen: Feb 23, 2018 Time patient seen: 15:38 Allergies: Coded Allergies: CODEINE (Verified Allergy, Unknown, 02/22/18) SULFA (SULFONAMIDE ANTIBIOTICS) (Verified Allergy, Unknown, 02/22/18) Subjective - no acute events overnight - seen by ID - doing well. states improvement in strength. states that she walked today - venous duplex negative for DVT in BLE Objective Last 24 Hour Vital Signs Date Time Temp Pulse Resp B/P (MAP) Pulse Ox O2 Delivery O2 Flow Rate FiO2 02/23/18 04:00 98.9 97 17 131/67 96 Room Air 98.9 02/23/18 00:00 98.3 94 16 144/71 95 Room Air 98.3 02/22/18 20:00 98.7 101 17 133/67 95 Room Air 98.7 02/22/18 16:30 98.3 102 18 152/65 94 Room Air 98.2 02/22/18 16:00 99.7 106 20 141/70 97 99.7 Intake and Output 02/22/18 02/23/18 19:00 07:00 Intake Total 1130 ml 945 ml Balance 1130 ml 945 ml Intake Oral 0 ml 120 ml IV Total 1130 ml 825 ml # Voids 2 Laboratory Tests 02/23/18 05:25: White Blood Count 3.8L, Red Blood Count 4.12L, Hemoglobin 11.6L, Hematocrit 35.9L, Mean Corpuscular Volume 87, Mean Corpuscular Hemoglobin 28.0, Mean Corpuscular Hemoglobin Concent 32.2, Red Cell Distribution Width 14.0, Platelet Count 204, Mean Platelet Volume 9.7, Neutrophils (%) (Auto) 37.6L, Lymphocytes ( %) (Auto) 40.8, Monocytes (%) (Auto) 17.4H, Eosinophils (%) (Auto) 1.6, Basophils (%) (Auto) 2.5H, Sodium Level 139, Potassium Level 2.9L, Chloride Level 101, Carbon Dioxide Level 31, Anion Gap 7, Blood Urea Nitrogen 9, Creatinine 1.1, Estimat Glomerular Filtration Rate , Glucose Level 119H, Hemoglobin A1c 8.6H, Calcium Level 8.4L, Pro-B-Type Natriuretic Peptide 216H, Triglycerides Level 72, Cholesterol Level 184, LDL Cholesterol 137H, HDL Cholesterol 44, Cholesterol/HDL Ratio 4.2 Height (Feet): 5 Height (Inches): 7.00 Weight (Pounds): 220 General Appearance: no apparent distress, alert EENT: PERRL/EOMI, normal ENT inspection Neck: non-tender, normal alignment, supple Cardiovascular: normal peripheral pulses, normal rate, regular rhythm Respiratory/Chest: chest wall non-tender, lungs clear, normal breath sounds Abdomen: normal bowel sounds, non tender, soft Edema: moderate edema Neurologic: docket specialist II-XII grossly normal, no motor/sensory deficits, alert, oriented x 3 Skin: normal pigmentation, warm/dry Nasra Arciniega NP Feb 23, 2018 15:40
[2018-02-23 16:00] VITALS: BP 122/73
[2018-02-23 20:00] VITALS: BP 132/66
[2018-02-23] MEDS: Atorvastatin 80mg tab ORAL SCH (21:18)
[2018-02-24] VITALS: BP 131/74
[2018-02-24 04:00] VITALS: BP 154/81
[2018-02-24 06:28] LABS: EOSINOPHILS % (AUTO) 4.2 % (0.0-3.0); HEMATOCRIT 36.9 % (37.0-47.0); LYMPHOCYTES % (AUTO) 48.8 % (20.0-45.0); MEAN CORPUSCULAR VOLUME 87 FL (80-99); MONOCYTES % (AUTO) 11.5 % (1.0-10.0); NEUTROPHILS % (AUTO) 33.5 % (45.0-75.0); PLATELET COUNT 200 K/UL (150-450); RED BLOOD COUNT 4.24 M/UL (4.20-5.40); RED CELL DISTRIBUTION WIDTH 13.8 % (11.6-14.8); WHITE BLOOD COUNT 4.5 K/UL (4.8-10.8)
[2018-02-24] MEDS: Glimepiride 1mg tab ORAL SCH (06:30)
[2018-02-24] MEDS: NovoLOG Insulin Flexpen SUBQ SCH ×4 (06:30→21:28)
[2018-02-24 06:39] LABS: ANION GAP 4 mmol/L (5-15); BLOOD UREA NITROGEN 10 mg/dL (7-18); CALCIUM 8.7 MG/DL (8.5-10.1); CARBON DIOXIDE 35 MMOL/L (21-32); CHLORIDE 104 MMOL/L (98-107); CREATININE 1.1 MG/DL (0.55-1.30); POTASSIUM 3.7 MMOL/L (3.5-5.1); SODIUM 143 MMOL/L (136-145)
[2018-02-24 08:00] VITALS: BP 141/87
[2018-02-24] MEDS: Aspirin Baby 81mg ORAL SCH (08:50)
[2018-02-24] MEDS: Heparin 5000 units/ml inj SUBQ SCH ×2 (08:53→21:26)
[2018-02-24 12:00] VITALS: BP 144/67
[2018-02-24] MEDS: cefTRIAXone 1 GM in D5W 110 ML IVPB SCH (14:09)
--- NOTE | 2018-02-24 15:52 | General Progress Note ---
Assessment/Plan Problem List: (1) H/O: CVA (cerebrovascular accident) ICD Codes: Z86.73 - Personal history of transient ischemic attack (TIA), and cerebral infarction without residual deficits SNOMED: 750956164 (2) HTN (hypertension) ICD Codes: I10 - Essential (primary) hypertension SNOMED: 85664433 (3) T2DM (type 2 diabetes mellitus) ICD Codes: E11.9 - Type 2 diabetes mellitus without complications SNOMED: 12594652 (4) Edema of both legs ICD Codes: R60.0 - Localized edema SNOMED: 32571224, 18717478, 046481657 (5) Pyelonephritis ICD Codes: N12 - Tubulo-interstitial nephritis, not specified as acute or chronic SNOMED: 85346800 (6) Episode of generalized weakness ICD Codes: R53.1 - Weakness SNOMED: 23204641 (7) Peripheral neuropathy ICD Codes: G62.9 - Polyneuropathy, unspecified SNOMED: 197686713 (8) HLD (hyperlipidemia) ICD Codes: E78.5 - Hyperlipidemia, unspecified SNOMED: 34468511 Status: stable, progressing Assessment/Plan - ID consulted, appreciate rec's - Empiric IV ceftriaxone - F/u urine cx -- gram positive and gram negative - F/u blood cx -- NGTD - TTE with 55-60% LVEF with mild LV diastolic dysfunction - BNP 221 - venous duplex negative for DVT in BLE - SSi - Check A1c 8.4 -- will start metformin upon discharge - LDL 137. Will start atorvastatin 80mg given h/o CVA and high LDL - Continue home meds including lasix, glimepiride, and gabapentin - PT/OT eval DVT Prophylaxis: SCD, HSQ Code Status: Full Hospital Classification Declaration: Based on this initial evaluation, and depending on the patient's clinical course, I anticipate that this patient will require hospitalization for 2-3 days for pyelonephritis, edema and close respiratory/hemodynamic monitoring. Disposition: Once the patient is stable to leave the hospital, I anticipate the patient will likely be discharged to the following environment: home with HH and family I spent 32 minutes on this patient's case, and 19 minutes were dedicated to counseling and/or care coordination. Discussed with patient/family, nursing staff, SW/CM, ID regarding clinical status, treatment course, and disposition planning. Time of note may not reflect time of encounter. Subjective Date patient seen: Feb 24, 2018 Time patient seen: 15:48 Allergies: Coded Allergies: CODEINE (Verified Allergy, Unknown, 02/22/18) SULFA (SULFONAMIDE ANTIBIOTICS) (Verified Allergy, Unknown, 02/22/18) Subjective - no acute events overnight - urine culture growing gram negative and gram positive - doing well. no cp, sob, n/v Objective Last 24 Hour Vital Signs Date Time Temp Pulse Resp B/P (MAP) Pulse Ox O2 Delivery O2 Flow Rate FiO2 02/24/18 12:00 97.8 69 20 144/67 99 Room Air 97.8 02/24/18 08:00 97.3 90 18 141/87 96 Room Air 97.3 02/24/18 04:00 97.3 86 18 154/81 100 Room Air 97.3 02/24/18 00:00 97.8 75 18 131/74 99 Room Air 97.8 02/23/18 20:00 98.8 81 18 132/66 97 Room Air 98.8 02/23/18 16:00 98.1 82 20 122/73 98 Room Air 98.1 Intake and Output 02/23/18 02/24/18 19:00 07:00 Intake Total 985 ml 990 ml Balance 985 ml 990 ml Intake Oral 910 ml 240 ml IV Total 75 ml 750 ml # Voids 1 2 Laboratory Tests 02/24/18 05:15: White Blood Count 4.5L, Red Blood Count 4.24, Hemoglobin 12.0, Hematocrit 36.9L , Mean Corpuscular Volume 87, Mean Corpuscular Hemoglobin 28.3, Mean Corpuscular Hemoglobin Concent 32.5, Red Cell Distribution Width 13.8, Platelet Count 200, Mean Platelet Volume 9.9, Neutrophils (%) (Auto) 33.5L, Lymphocytes ( %) (Auto) 48.8H, Monocytes (%) (Auto) 11.5H, Eosinophils (%) (Auto) 4.2H, Basophils (%) (Auto) 2.0, Sodium Level 143, Potassium Level 3.7, Chloride Level 104, Carbon Dioxide Level 35H, Anion Gap 4L, Blood Urea Nitrogen 10, Creatinine 1.1, Estimat Glomerular Filtration Rate , Glucose Level 108H, Calcium Level 8.7 , Magnesium Level 1.7L Height (Feet): 5 Height (Inches): 7.00 Weight (Pounds): 220 General Appearance: no apparent distress, alert EENT: PERRL/EOMI, normal ENT inspection Neck: non-tender, normal alignment, supple Cardiovascular: normal peripheral pulses, normal rate, regular rhythm Respiratory/Chest: chest wall non-tender, lungs clear, normal breath sounds Abdomen: normal bowel sounds, non tender, soft Neurologic: project buyer II-XII grossly normal, no motor/sensory deficits, alert, oriented x 3 Skin: normal pigmentation, warm/dry Nasra Arciniega NP Feb 24, 2018 15:52
[2018-02-24 16:00] VITALS: BP 134/65
[2018-02-24 20:00] VITALS: BP 156/76
[2018-02-24] MEDS: Atorvastatin 80mg tab ORAL SCH (21:23)
--- NOTE | 2018-02-24 23:16 | General Progress Note ---
Assessment/Plan Status: stable Assessment/Plan encephalopathy anxiety -no meds -will reeval Subjective Date patient seen: Feb 24, 2018 Neurologic/Psychiatric: Reports: anxiety, depressed Allergies: Coded Allergies: CODEINE (Verified Allergy, Unknown, 02/22/18) SULFA (SULFONAMIDE ANTIBIOTICS) (Verified Allergy, Unknown, 02/22/18) Objective Last 24 Hour Vital Signs Date Time Temp Pulse Resp B/P (MAP) Pulse Ox O2 Delivery O2 Flow Rate FiO2 02/24/18 20:00 97.3 77 20 156/76 100 Room Air 97.3 02/24/18 16:00 98.1 78 20 134/65 98 Room Air 98.1 02/24/18 12:00 97.8 69 20 144/67 99 Room Air 97.8 02/24/18 08:00 97.3 90 18 141/87 96 Room Air 97.3 02/24/18 04:00 97.3 86 18 154/81 100 Room Air 97.3 02/24/18 00:00 97.8 75 18 131/74 99 Room Air 97.8 Intake and Output 02/23/18 02/24/18 19:00 07:00 Intake Total 985 ml 990 ml Balance 985 ml 990 ml Intake Oral 910 ml 240 ml IV Total 75 ml 750 ml # Voids 1 2 Laboratory Tests 02/24/18 05:15: White Blood Count 4.5L, Red Blood Count 4.24, Hemoglobin 12.0, Hematocrit 36.9L , Mean Corpuscular Volume 87, Mean Corpuscular Hemoglobin 28.3, Mean Corpuscular Hemoglobin Concent 32.5, Red Cell Distribution Width 13.8, Platelet Count 200, Mean Platelet Volume 9.9, Neutrophils (%) (Auto) 33.5L, Lymphocytes ( %) (Auto) 48.8H, Monocytes (%) (Auto) 11.5H, Eosinophils (%) (Auto) 4.2H, Basophils (%) (Auto) 2.0, Sodium Level 143, Potassium Level 3.7, Chloride Level 104, Carbon Dioxide Level 35H, Anion Gap 4L, Blood Urea Nitrogen 10, Creatinine 1.1, Estimat Glomerular Filtration Rate , Glucose Level 108H, Calcium Level 8.7 , Magnesium Level 1.7L Height (Feet): 5 Height (Inches): 7.00 Weight (Pounds): 220 General Appearance: no apparent distress, alert Neurologic: oriented x 3, responsive, depressed affect Susanne Neal M.D. Feb 24, 2018 23:16
[2018-02-25] VITALS: BP 117/77
[2018-02-25 04:00] VITALS: BP 138/77
[2018-02-25] MEDS: Glimepiride 1mg tab ORAL SCH (05:56)
[2018-02-25] MEDS: NovoLOG Insulin Flexpen SUBQ SCH ×2 (06:00→11:30)
[2018-02-25] MEDS: Aspirin Baby 81mg ORAL SCH (08:35)
[2018-02-25] MEDS: Heparin 5000 units/ml inj SUBQ SCH (08:39)
[2018-02-25 08:45] VITALS: BP 126/96
[2018-02-25 09:33] LABS: BASOPHILS % (AUTO) 2.3 % (0.0-2.0); EOSINOPHILS % (AUTO) 4.3 % (0.0-3.0); HEMOGLOBIN 12.1 G/DL (12.0-16.0); LYMPHOCYTES % (AUTO) 46.1 % (20.0-45.0); MEAN CORPUSCULAR VOLUME 88 FL (80-99); MONOCYTES % (AUTO) 8.8 % (1.0-10.0); NEUTROPHILS % (AUTO) 38.5 % (45.0-75.0); PLATELET COUNT 214 K/UL (150-450); RED BLOOD COUNT 4.33 M/UL (4.20-5.40); WHITE BLOOD COUNT 3.6 K/UL (4.8-10.8)
[2018-02-25 09:50] LABS: ANION GAP 6 mmol/L (5-15); BLOOD UREA NITROGEN 12 mg/dL (7-18); CALCIUM 8.4 MG/DL (8.5-10.1); CARBON DIOXIDE 31 MMOL/L (21-32); CHLORIDE 103 MMOL/L (98-107); CREATININE 1.1 MG/DL (0.55-1.30); POTASSIUM 3.3 MMOL/L (3.5-5.1); SODIUM 140 MMOL/L (136-145)
--- NOTE | 2018-02-25 11:51 | Cardiology Report ---
APPROVED REPORT EXAM: Two-dimensional and M-mode echocardiogram with Doppler and color Doppler. INDICATION Hypertension/HCVD M-Mode DIMENSIONS IVSd1.9 (0.7-1.1cm)Left Atrium (MM)4.0 (1.6-4.0cm) LVDd4.6 (3.5-5.6cm)Aortic Root3.3 (2.0-3.7cm) PWd1.2 (0.7-1.1cm)Aortic Cusp Exc.1.6 (1.5-2.0cm) IVSs1.8 cm LVDs3.8 (2.5-4.0cm) PWs1.4 cm Normal left ventricular chamber size, systolic function and wall motion . Left ventricular ejection fraction estimated to be 55-60%. Mild left ventricular hypertrophy by 2-D. No evidence of pericardial fat or effusion. All other cardiac chamber size are within normal limits. Focal aortic valve sclerosis with adequate cusp excursion. Thickened mitral valve leaflets with normal excursion. Mitral annulus and aortic root calcification. Pulmonic valve not well visualized. Normal tricuspid valve structure. IVC at normal size with physiologic collapse. A color flow and spectral Doppler study was performed and revealed: No aortic regurgitation. Trace mitral regurgitation. Mitral diastolic velocities suggest reduced left ventricular relaxation c/w mild LV diastolic dysfunction (Grade I ). Mild tricuspid regurgitation. Tricuspid systolic velocities suggests peak right ventricular systolic pressure of 35mmHg, consistent with mild pulmonary hypertension. No Pulmonic regurgitation present.
--- NOTE | 2018-02-25 12:20 | Cardiology Report ---
APPROVED REPORT EKG Measurement Heart [id number] Atrial fibrillation with rapid ventricular response with premature ventricular or aberrantly conducted complexes Abnormal QRS-T angle, consider primary T wave abnormality Abnormal ECG
[2018-02-25] MEDS ORDERED: AMPICILLIN TRI500 MG ORAL (15:12)
[2018-02-25] MEDS ORDERED: METFORMIN HCL500 M1 ORAL (15:12)
[2018-02-25] MEDS ORDERED: CIPROFLOXA500 MG/5 M PO (15:12)
[2018-02-25] MEDS ORDERED: ASPIRIN81 MG ORAL (15:12)
[2018-02-25] MEDS ORDERED: LIPITOR80 MG ORAL (15:12)
--- NOTE | 2018-02-25 15:15 | Infectious Diseases Prog Note ---
Assessment/Plan Assessment/Plan ASSESSMENT AND PLAN: 1. uti/pyelonephritis, possible sepsis, lethargy, generalized weakness - clinically more alert, fevers resolved - on rocephin and ampicillin - can transition to ciprofloxacin plus ampicillin x 5 days - d/w Nasra Arciniega NP 2. The patient has history of diabetes type 2. Blood sugar treatment per primary. 3. Hypertension. Blood pressure treatment per primary. 4. CVA. 5. TIA 6. Hyperlipidemia. 7. Hypokalemia. 8. Allergy to codeine and sulfa. 9. MAR was noted. 10. Case was discussed with RN. 11. Social history is negative. 12. Family history is noncontributory. 13. Discussed with Nasra Arciniega NP 14. Skin care protocol. 15. Continue treatment per primary consultants. 16. Orders were entered and noted. Subjective Constitutional: Denies: fever HEENT: Denies: congestion Respiratory: Denies: shortness of breath Cardiovascular: Denies: chest pain Gastrointestinal/Abdominal: Denies: nausea, vomiting, diarrhea Genitourinary: Denies: other Neurologic: Denies: headache Psychiatric: Denies: depression Hematologic: Denies: bleeding Musculoskeletal: Denies: pain Allergies: Coded Allergies: CODEINE (Verified Allergy, Unknown, 02/22/18) SULFA (SULFONAMIDE ANTIBIOTICS) (Verified Allergy, Unknown, 02/22/18) Objective Vital Signs Last 24 Hour Vital Signs Date Time Temp Pulse Resp B/P (MAP) Pulse Ox O2 Delivery O2 Flow Rate FiO2 02/25/18 08:45 98.6 85 18 126/96 98 Room Air 98.6 02/25/18 04:00 98.0 72 20 138/77 100 Room Air 98.0 02/25/18 00:00 98.0 69 20 117/77 100 Room Air 98.0 02/24/18 20:00 97.3 77 20 156/76 100 Room Air 97.3 02/24/18 16:00 98.1 78 20 134/65 98 Room Air 98.1 Height (Feet): 5 Height (Inches): 7.00 Weight (Pounds): 220 General Appearance: no acute distress HEENT: normocephalic, atraumatic, anicteric, mucous membranes moist, EOMI, pharynx normal, supple, no JVD Respiratory/Chest: lungs clear, normal breath sounds, no respiratory distress, no accessory muscle use Cardiovascular: normal rate, regular rhythm, no gallop/murmur, no JVD Abdomen: normal bowel sounds, soft, non tender, no organomegaly, non distended Genitourinary: other - no linda Extremities: no cyanosis Skin: no rash Neurologic/Psychiatric: kennel hand II-XII grossly normal, alert, oriented x 3, responsive Lymphatic: no neck adenopathy Musculoskeletal: no effusion Objective Chest x-ray - NAD (reviewed, report noted) Microbiology Date/Time Source Procedure Growth Status 02/22/18 12:40 Blood Blood Culture - Preliminary NO GROWTH AFTER 48 HOURS Resulted 02/23/18 09:07 Urine,Clean Catch Urine Culture - Final Enterococcus Faecalis Mixed Urogenital Contaminants Complete Microbiology Date/Time Source Procedure Growth Status 02/23/18 09:07 Urine,Clean Catch Urine Culture - Final Enterococcus Faecalis Mixed Urogenital Contaminants Complete Laboratory Tests Test 02/25/18 08:55 White Blood Count 3.6 K/UL (4.8-10.8) L Red Blood Count 4.33 M/UL (4.20-5.40) Hemoglobin 12.1 G/DL (12.0-16.0) Hematocrit 38.0 % (37.0-47.0) Mean Corpuscular Volume 88 FL (80-99) Mean Corpuscular Hemoglobin 27.9 PG (27.0-31.0) Mean Corpuscular Hemoglobin Concent 31.9 G/DL (32.0-36.0) L Red Cell Distribution Width 14.0 % (11.6-14.8) Platelet Count 214 K/UL (150-450) Mean Platelet Volume 9.9 FL (6.5-10.1) Neutrophils (%) (Auto) 38.5 % (45.0-75.0) L Lymphocytes (%) (Auto) 46.1 % (20.0-45.0) H Monocytes (%) (Auto) 8.8 % (1.0-10.0) Eosinophils (%) (Auto) 4.3 % (0.0-3.0) H Basophils (%) (Auto) 2.3 % (0.0-2.0) H Sodium Level 140 MMOL/L (136-145) Potassium Level 3.3 MMOL/L (3.5-5.1) L Chloride Level 103 MMOL/L (98-107) Carbon Dioxide Level 31 MMOL/L (21-32) Anion Gap 6 mmol/L (5-15) Blood Urea Nitrogen 12 mg/dL (7-18) Creatinine 1.1 MG/DL (0.55-1.30) Estimat Glomerular Filtration Rate mL/min (>60) Glucose Level 175 MG/DL (74-106) H Calcium Level 8.4 MG/DL (8.5-10.1) L Current Medications Medications (Trade) Dose Ordered Sig/Farnaz Route PRN Reason Start Time Stop Time Status Last Admin Dose Admin Acetaminophen (Tylenol) 650 mg Q6H PRN ORAL Mild Pain/Temp > 100.5 02/22/18 17:30 03/24/18 17:29 Ampicillin (Ampicillin) 500 mg EVERY 6 HOURS ORAL 02/24/18 18:00 03/03/18 17:59 02/25/18 12:06 Aspirin (ASA) 81 mg DAILY ORAL 02/24/18 09:00 03/26/18 08:59 02/25/18 08:35 Atorvastatin Calcium (Lipitor) 80 mg BEDTIME ORAL 02/23/18 21:00 03/25/18 20:59 02/24/18 21:23 Ceftriaxone Sodium 1 gm/ Dextrose 110 ml @ 220 mls/hr Q24H IVPB 02/23/18 14:00 03/02/18 13:59 02/24/18 14:09 Dextrose (Dextrose 50%) 25 ml STAT PRN IV Hypoglycemia 02/22/18 18:00 03/24/18 17:59 Dextrose (Dextrose 50%) 50 ml STAT PRN IV Hypoglycemia 02/22/18 18:00 03/24/18 17:59 Furosemide (Lasix) 20 mg DAILY ORAL 02/23/18 09:00 03/25/18 08:59 02/25/18 08:35 Gabapentin (Neurontin) 300 mg BEDTIME ORAL 02/22/18 21:00 03/24/18 20:59 02/24/18 21:23 Glimepiride (Amaryl) 2 mg ACBREAKFAST ORAL 02/23/18 06:30 03/25/18 06:29 02/25/18 05:56 Heparin Sodium (Porcine) (Heparin 5000 units/ml) 5,000 units EVERY 12 HOURS SUBQ 02/22/18 21:00 03/24/18 20:59 02/25/18 08:39 Hydralazine HCl (Apresoline) 25 mg Q6H PRN ORAL SBP > 160mmHg 02/22/18 17:30 03/24/18 17:29 Insulin Aspart (NovoLOG) BEFORE MEALS AND HS SUBQ 02/22/18 21:00 03/24/18 20:59 02/25/18 06:00 Potassium Chloride (K-Dur) 10 meq TWICE A DAY ORAL 02/22/18 18:00 03/24/18 17:59 02/25/18 08:36 Sodium Chloride 1,000 ml @ 75 mls/hr [id number] IV 02/22/18 18:00 03/24/18 17:59 02/25/18 12:07 Lucho Friedman MD Feb 25, 2018 15:15
[2018-02-25] MEDS: cefTRIAXone 1 GM in D5W 110 ML IVPB SCH (15:33)
--- NOTE | 2018-02-25 16:02 | Discharge Summary ---
Discharge Summary Hospital Course Date of Admission Feb 22, 2018 at 14:25 Date of Discharge february 25, 2018 Admitting Diagnosis generalized weakness, unable to ambulate HPI Maine Valdez is a 77 year old female who was admitted on Feb 22, 2018 at 14: 25 for Generalized Weakness,Unable To Ambulate Patient is a 77 y/o female with a PMH of T2DM, HTN, h/o CVA in 2013 that presented to the ER for generalized weakness since today. Per family, patient woke up today with generalized weakness and lethargy, which was not at her baseline. Patient was further brought to the ED for this reason and was noted to have a UTI. EKG showed sinus tachycardia and initial troponin was negative. Patient was also noted to have increased bilateral lower extremity swelling for which she states she takes lasix for. Denies h/o CHF, HI. Denies cp, sob, n/v, abdominal pain, flank pain, d/c, f/c. Of note, patient was recently at [facility] for an infected boil to her buttocks last month and was given 10 days of PO ciprofloxacin and is now resolved. Consultations ID, Dr. Klein Procedures None Hospital Course Patient was admitted and started on IV ceftriaxone for pyelonephritis. ID was consulted. Urine culture grew klebsiella and enterococcus. Patient was therefore also started on ampicillin. Patient was also noted to have bilateral lower extremity swelling and ECHO was checked, which showed normal LV function. A1c was elevated at 8.4 and patient was started on sliding scale insulin. Patient was also noted to have an LDL of 137 and was started on atorvastatin 80mg especially given a history of CVA. Patient was therefore hemodynamically stable for discharge and was discharged with medications including metformin, aspirin, atorvastatin, ciprofloxacin for 5 days and ampicillin for 5 days. Patient was advised to follow up with her PCP within 1 week. Discharge Medications New Medications: Ciprofloxacin (Ciprofloxacin) 500 Mg/5 Ml Ainsley..rec 500 MG PO BID for 30 Days, #60 TAB Metformin Hcl* (Metformin Hcl*) 500 Mg Tablet 500 MG ORAL TWICE A DAY for 30 Days, #60 TAB Ampicillin Trihydrate (Ampicillin Trihydrate) 500 Mg Capsule 500 MG ORAL EVERY 6 HOURS for 5 Days, #20 CAP Aspirin* (Aspirin*) 81 Mg Tab.chew 81 MG ORAL DAILY for 30 Days, #30 TAB Atorvastatin (Lipitor) 80 Mg Tablet 80 MG ORAL BEDTIME for 30 Days, #30 TAB Continued Medications: Furosemide* (Lasix*) 20 Mg Tablet 20 MG ORAL DAILY, TAB (This prescription has been renewed) Gabapentin* (Gabapentin*) 300 Mg Capsule 300 MG ORAL BEDTIME, CAP (This prescription has been renewed) Glimepiride (Glimepiride) 2 Mg Tablet 2 MG ORAL BEFORE BREAKFAST, TAB (This prescription has been renewed) Potassium Chloride (Potassium Chloride) 10 Meq Tablet.er 10 MEQ ORAL TWICE A DAY, #60 TAB 0 Refills (This prescription has been renewed) Tramadol Hcl* (Ultram*) 50 Mg Tablet 50 MG ORAL Q6H PRN for For Pain, #30 TAB 0 Refills (This prescription has been renewed) Discontinued Medications: Gabapentin* (Gabapentin*) 100 Mg Capsule MG ORAL, CAP Naproxen Sodium (Naproxen Cr) 500 Mg Tbmp.24hr 500 MG PO, TAB Discharge Condition Upon Discharge: improving, stable Discharge Disposition Patient was discharged to Home (01) Discharge Diagnoses: (1) HLD (hyperlipidemia) (2) Peripheral neuropathy (3) H/O: CVA (cerebrovascular accident) (4) Episode of generalized weakness (5) Edema of both legs (6) HTN (hypertension) (7) Pyelonephritis (8) T2DM (type 2 diabetes mellitus) Nasra Arciniega NP Feb 25, 2018 16:02
[2018-02-25 16:22] VITALS: BP 143/82
--- NOTE | 2018-02-25 22:13 | General Progress Note ---
Assessment/Plan Assessment/Plan encephalopathy anxiety -no meds -will reeval Subjective Date patient seen: Feb 25, 2018 Neurologic/Psychiatric: Reports: anxiety, depressed, emotional problems Allergies: Coded Allergies: CODEINE (Verified Allergy, Unknown, 02/22/18) SULFA (SULFONAMIDE ANTIBIOTICS) (Verified Allergy, Unknown, 02/22/18) Objective Last 24 Hour Vital Signs Date Time Temp Pulse Resp B/P (MAP) Pulse Ox O2 Delivery O2 Flow Rate FiO2 02/25/18 16:22 98.1 76 19 143/82 98 Room Air 98.1 02/25/18 08:45 98.6 85 18 126/96 98 Room Air 98.6 02/25/18 04:00 98.0 72 20 138/77 100 Room Air 98.0 02/25/18 00:00 98.0 69 20 117/77 100 Room Air 98.0 Intake and Output 02/24/18 02/25/18 19:00 07:00 Intake Total 1830 ml 1525 ml Balance 1830 ml 1525 ml Intake Oral 870 ml 700 ml IV Total 960 ml 825 ml # Voids 3 3 # Bowel Movements 1 Laboratory Tests 02/25/18 08:55: White Blood Count 3.6L, Red Blood Count 4.33, Hemoglobin 12.1, Hematocrit 38.0, Mean Corpuscular Volume 88, Mean Corpuscular Hemoglobin 27.9, Mean Corpuscular Hemoglobin Concent 31.9L, Red Cell Distribution Width 14.0, Platelet Count 214, Mean Platelet Volume 9.9, Neutrophils (%) (Auto) 38.5L, Lymphocytes (%) (Auto) 46.1H, Monocytes (%) (Auto) 8.8, Eosinophils (%) (Auto) 4.3H, Basophils (%) ( Auto) 2.3H, Sodium Level 140, Potassium Level 3.3L, Chloride Level 103, Carbon Dioxide Level 31, Anion Gap 6, Blood Urea Nitrogen 12, Creatinine 1.1, Estimat Glomerular Filtration Rate , Glucose Level 175H, Calcium Level 8.4L Height (Feet): 5 Height (Inches): 7.00 Weight (Pounds): 220 Susanne Neal M.D. Feb 25, 2018 22:13
== END 2018-02-25 18:09 | disposition home or self-care (01) | DRG 689 ==
LOC: EDBD 12:03 → EMR 12:35 → 3E 14:25 → EDBEDREQ 14:54 → 4E 02-25 14:55
DX: N12 Tubulo-interstitial nephritis, not specified as acute or chronic (principal); G93.40 Encephalopathy, unspecified; I10 Essential (primary) hypertension; E87.6 Hypokalemia; Z88.6 Allergy status to analgesic agent; Z88.2 Allergy status to sulfonamides; G62.9 Polyneuropathy, unspecified; E11.9 Type 2 diabetes mellitus without complications; Z86.73 Personal history of transient ischemic attack (TIA), and cerebral infarction without residual deficits; E78.5 Hyperlipidemia, unspecified; B95.2 Enterococcus as the cause of diseases classified elsewhere; B96.1 Klebsiella pneumoniae [K. pneumoniae] as the cause of diseases classified elsewhere; R60.0 Localized edema; R53.1 Weakness; F41.9 Anxiety disorder, unspecified; R26.2 Difficulty in walking, not elsewhere classified
CPT/HCPCS: 36415; 71045; 80048; 80053; 80061; 81003; 82550; 82553; 82962; 83036; 83605; 83735; 83880; 84100; 84484; 85025; 85610; 85730; 87040; 87086; 87181; 93005; 93306; 93970; 99285; J1815; J8499

== ENCOUNTER 2020-02-23 13:48 | Inpatient (IN) | payer MEDICARE, OTHER ==
[~2020-02-23] VITALS: Ht 167.6 cm; Wt 92.1 kg
[~2020-02-23 13:48] MED LIST changes: +AMPICILLIN TRI500 MG ORAL; +ASPIRIN81 MG ORAL; +CIPROFLOXA500 MG/5 M PO; +GABAPENTIN300 MG ORAL; +GLIMEPIRIDE2 MG ORAL; +LIPITOR80 MG ORAL; +METFORMIN HCL500 M1 ORAL; +NAPROXEN CR500 MG PO; +POTASSIUM CHLO10 ME3 ORAL; +TRAMADOL HCL50 MG ORAL
[2020-02-23 13:55] VITALS: BP 147/62
[2020-02-23 14:29] LABS: HEMATOCRIT 44.3 % (37.0-47.0); HEMOGLOBIN 13.9 G/DL (12.0-16.0); MEAN CORPUSCULAR VOLUME 89 FL (80-99); PLATELET COUNT 189 K/UL (150-450); RED BLOOD COUNT 4.95 M/UL (4.20-5.40); RED CELL DISTRIBUTION WIDTH 11.8 % (11.6-14.8); WHITE BLOOD COUNT 2.9 K/UL (4.8-10.8)
--- NOTE | 2020-02-23 14:30 | Emergency Room Report ---
History of Present Illness General Chief Complaint: Multiple Trauma/Fall Source: Patient Present Illness HPI Patient is a 79-year-old female brought in by her daughter for generalized weakness. Patient states that she fell out of bed yesterday and was on the floor for a long time and was unable to move because she was so weak. She denies any fever or chills. She denies any chest pain or shortness of breath. She is alert and oriented x3. She denies any blurry vision or focal weakness. Patient states that she is unable to get around which is unusual for her. Allergies: Coded Allergies: CODEINE (Verified Allergy, Unknown, 02/22/18) SULFA (SULFONAMIDE ANTIBIOTICS) (Verified Allergy, Unknown, 02/22/18) COVID-19 Screening Contact w/high risk pt: No Recent Travel to affected area: No Experienced COVID-19 symptoms?: No COVID-19 Testing performed NAVAL INSPECTOR: No Patient History Reviewed Nursing Documentation: PMH: Agreed; PSxH: Agreed Nursing Documentation-PMH Hx Cardiac Problems: Yes - strock Hx Hypertension: Yes Hx Diabetes: Yes Hx Cancer: No Hx Gastrointestinal Problems: No Hx Neurological Problems: No Review of Systems All Other Systems: negative except mentioned in HPI Physical Exam Vital Signs Date Time Temp Pulse Resp B/P (MAP) Pulse Ox O2 Delivery O2 Flow Rate FiO2 02/23/20 13:51 99.5 104 20 147/62 (90) 98 Room Air Sp02 EP Interpretation: reviewed, normal General Appearance: no apparent distress, alert, GCS 15, non-toxic Head: normocephalic, atraumatic Eyes: bilateral eye normal inspection, bilateral eye PERRL ENT: hearing grossly normal, normal pharynx, no angioedema, normal voice Neck: full range of motion, supple/symm/no masses Respiratory: chest non-tender, speaking full sentences Cardiovascular #1: regular rate, rhythm, no edema Gastrointestinal: normal bowel sounds, non tender, soft, non-distended, no guarding, no rebound Rectal: deferred Genitourinary: no CVA tenderness Musculoskeletal: other - bl calf tenderness, bl LE edema Neurologic: director patient accounting III-XII nml as tested, oriented x3 Psychiatric: no suicidal/homicidal ideation Skin: other - BL LE venous stasis dermatitis, RLE medial lower leg venous stasis superficial ulceration, no erythema or crepitus Lymphatic: no adenopathy Medical Decision Making Diagnostic Impression: Primary Impression: Acute renal failure Additional Impressions: Leukocytosis Generalized weakness Failure to thrive ER Course Patient's labs demonstrate leukocytosis. Patient also has elevated BUN/ creatinine doubled from baseline from 2 years ago. Patient given 1 L of IV fluids. Ultrasound demonstrates no evidence for DVT. CT demonstrates no acute intracranial pathology. Patient will be admitted for further treatment and evaluation. Laboratory Tests Test 02/23/20 14:10 White Blood Count 2.9 K/UL (4.8-10.8) L Red Blood Count 4.95 M/UL (4.20-5.40) Hemoglobin 13.9 G/DL (12.0-16.0) Hematocrit 44.3 % (37.0-47.0) Mean Corpuscular Volume 89 FL (80-99) Mean Corpuscular Hemoglobin 28.1 PG (27.0-31.0) Mean Corpuscular Hemoglobin Concent 31.4 G/DL (32.0-36.0) L Red Cell Distribution Width 11.8 % (11.6-14.8) Platelet Count 189 K/UL (150-450) Mean Platelet Volume 10.0 FL (6.5-10.1) Neutrophils (%) (Auto) % (45.0-75.0) Lymphocytes (%) (Auto) % (20.0-45.0) Monocytes (%) (Auto) % (1.0-10.0) Eosinophils (%) (Auto) % (0.0-3.0) Basophils (%) (Auto) % (0.0-2.0) Differential Total Cells Counted 100 Neutrophils % (Manual) 67 % (45-75) Lymphocytes % (Manual) 17 % (20-45) L Monocytes % (Manual) 13 % (1-10) H Eosinophils % (Manual) 2 % (0-3) Basophils % (Manual) 0 % (0-2) Band Neutrophils 1 % (0-8) Platelet Estimate Adequate Platelet Morphology Normal Red Blood Cell Morphology Normal Prothrombin Time 11.3 SEC (9.30-11.50) Prothrombin Time INR 1.0 (0.9-1.1) Activated Partial Thromboplast Time 27 SEC (23-33) Urine Color Pale yellow Urine Appearance Clear Urine pH 6 (4.5-8.0) Urine Specific Orgas 1.015 (1.005-1.035) Urine Protein 2+ (NEGATIVE) H Urine Glucose (UA) Negative (NEGATIVE) Urine Ketones Negative (NEGATIVE) Urine Blood Negative (NEGATIVE) Urine Nitrite Negative (NEGATIVE) Urine Bilirubin Negative (NEGATIVE) Urine Urobilinogen Normal MG/DL (0.0-1.0) Urine Leukocyte Esterase Negative (NEGATIVE) Urine RBC 0 /HPF (0 - 2) Urine WBC 0 /HPF (0 - 2) Urine Squamous Epithelial Cells Few /LPF (NONE/OCC) Urine Bacteria Few /HPF (NONE) Urine Mucus Occasional /LPF Sodium Level 135 MMOL/L (136-145) L Potassium Level 4.2 MMOL/L (3.5-5.1) Chloride Level 95 MMOL/L (98-107) L Carbon Dioxide Level 30 MMOL/L (21-32) Anion Gap 10 mmol/L (5-15) Blood Urea Nitrogen 20 mg/dL (7-18) H Creatinine 2.0 MG/DL (0.55-1.30) H Estimated Glomerular Filtration Rate 29.1 mL/min (>60) Glucose Level 93 MG/DL (74-106) Lactic Acid Level 1.80 mmol/L (0.4-2.0) Calcium Level 8.5 MG/DL (8.5-10.1) Phosphorus Level 4.4 MG/DL (2.5-4.9) Magnesium Level 1.9 MG/DL (1.8-2.4) Total Bilirubin 0.3 MG/DL (0.2-1.0) Aspartate Amino Transferase (AST) 27 U/L (15-37) Alanine Aminotransferase (ALT) 22 U/L (12-78) Alkaline Phosphatase 89 U/L (46-116) Total Creatine Kinase 96 U/L (26-308) Creatine Kinase MB 1.1 NG/ML (0.0-3.6) Creatine Kinase MB Relative Index 1.1 Troponin I 0.000 ng/mL (0.000-0.056) Pro-B-Type Natriuretic Peptide 114 pg/mL (0-125) Total Protein 8.5 G/DL (6.4-8.2) H Albumin 3.5 G/DL (3.4-5.0) Globulin 5.0 g/dL Albumin/Globulin Ratio 0.7 (1.0-2.7) L EKG Diagnostic Results EKG Time: 14:20 EP Interpretation: Shannon Guo MD Rate: normal - 93 Rhythm: NSR ST Segments: no acute changes ASA given to the pt in ED: No Rhythm Strip Diag. Results Rhythm Strip Time: 14:29 EP Interpretation: yes - Shannon Guo MD Rate: 96 Rhythm: NSR, no PVC's, no ectopy Chest X-Ray Diagnostic Results Chest X-Ray Diagnostic Results : Chest X-Ray Ordered: Yes # of Views/Limited/Complete: 1 View Indication: Other - weakness EP Interpretation: Yes Interpretation: no consolidation, no effusion, no pneumothorax Impression: No acute disease Electronically Signed by: Shannon Guo MD Last Vital Signs Date Time Temp Pulse Resp B/P (MAP) Pulse Ox O2 Delivery O2 Flow Rate FiO2 02/23/20 13:55 99.5 96 21 147/62 94 Room Air Disposition: ADMITTED INPATIENT - Medical Floor Condition: Critical Physician Consult: Dr. Nichole at 1520 Referrals: NON PHYSICIAN (PCP) Shannon Guo M.D. Feb 23, 2020 14:30
[2020-02-23 14:35] LABS: APPEARANCE,URINE CLEAR; BILIRUBIN, URINE NEGATIVE (NEGATIVE); COLOR,URINE PALE YELLOW; GLUCOSE, URINE (UA) NEGATIVE (NEGATIVE); KETONES,URINE NEGATIVE (NEGATIVE); LEUKOCYTE ESTERASE ,URINE NEGATIVE (NEGATIVE); NITRITE,URINE NEGATIVE (NEGATIVE); PH,URINE 6 (4.5-8.0); PROTEIN,URINE 2+ (NEGATIVE); UROBILINOGEN,URINE NORMAL MG/DL (0.0-1.0)
[2020-02-23 14:36] LABS: ANION GAP 10 mmol/L (5-15); BLOOD UREA NITROGEN 20 mg/dL (7-18); CALCIUM 8.5 MG/DL (8.5-10.1); CARBON DIOXIDE 30 MMOL/L (21-32); CHLORIDE 95 MMOL/L (98-107); POTASSIUM 4.2 MMOL/L (3.5-5.1); SODIUM 135 MMOL/L (136-145)
[2020-02-23 14:49] LABS: ALANINE AMINOTRANSFERASE 22 U/L (12-78); ALBUMIN 3.5 G/DL (3.4-5.0); ALBUMIN/GLOBULIN RATIO 0.7 (1.0-2.7); ALKALINE PHOSPHATASE 89 U/L (46-116); ASPARTATE AMINO TRANSFERASE 27 U/L (15-37); BILIRUBIN,TOTAL 0.3 MG/DL (0.2-1.0); CKMB 1.1 NG/ML (0.0-3.6); CREATINE KINASE 96 U/L (26-308); PHOSPHORUS 4.4 MG/DL (2.5-4.9)
--- NOTE | 2020-02-23 15:20 | Diagnostic Imaging Report ---
EXAM: US Duplex Bilateral Upper Extremities Veins CLINICAL HISTORY: PAIN TECHNIQUE: Real-time duplex ultrasound scan of the bilateral upper extremity veins integrating B-mode two-dimensional vascular structure, Doppler spectral analysis, color flow Doppler imaging and compression. COMPARISON: None FINDINGS: Right deep veins: Unremarkable. No DVT in the right internal jugular, subclavian, axillary, or brachial veins. The veins demonstrate normal color flow, are normally compressible, with normal phasic flow and/or augmentation response. Right superficial veins: Unremarkable. No thrombus in the visualized right basilic and cephalic veins. Left deep veins: Unremarkable. No DVT in the left internal jugular, subclavian, axillary, or brachial veins. The veins demonstrate normal color flow, are normally compressible, with normal phasic flow and/or augmentation response. Left superficial veins: Unremarkable. No thrombus in the visualized left basilic and cephalic veins. Soft tissues: No acute findings. IMPRESSION: No deep venous thrombosis identified in either lower extremity.
[2020-02-23 15:31] VITALS: BP 135/60
--- NOTE | 2020-02-23 15:44 | Diagnostic Imaging Report ---
EXAM: CT Head Without Intravenous Contrast CLINICAL HISTORY: AMS TECHNIQUE: Axial computed tomography images of the head/brain without intravenous contrast. CTDI is 53.4 mGy and DLP is 992.1 mGy-cm. One or more of the following dose reduction techniques were used: automated exposure control, adjustment of the mA and/or kV according to patient size, use of iterative reconstruction technique. COMPARISON: None FINDINGS: Brain: No acute infarct or hemorrhage identified. No extra-axial fluid collection. No mass effect or midline shift. Scattered areas of hypoattenuation in the supratentorial white matter likely represent chronic small vessel ischemic changes. Encephalomalacia in the right occipital lobe. Probable small remote infarct in the left thalamus. Ventricles and sulci: Prominence of the ventricles and sulci is likely secondary to cerebral volume loss. Bones: Mild hyperostosis frontalis interna. No bony lesion or fracture. Subcutaneous tissues: Normal. Sinuses: Normal. No air-fluid levels or mucosal thickening. Mastoid air cells: Normal. Orbits: Bilateral lens implants. Other: Atherosclerotic calcifications in the intracranial vasculature. IMPRESSION: 1. No acute intracranial abnormality. If there is persistent concern for acute ischemia, consider further evaluation with MRI. 2. Chronic small vessel ischemic changes and cerebral volume loss. Encephalomalacia in the right occipital lobe.
[2020-02-23] MEDS ORDERED: Zosyn 2.25gm inj IV SCH (15:45)
[2020-02-23] MEDS ORDERED: Albuterol/Ipratropium 3ml neb HHN PRN (15:45)
--- NOTE | 2020-02-23 17:08 | Diagnostic Imaging Report ---
EXAM: US Retroperitoneal Complete, Renal CLINICAL HISTORY: RENAL-A TECHNIQUE: Real-time complete ultrasound of the retroperitoneum with image documentation. COMPARISON: None FINDINGS: Aorta: Visualized portions of the aorta and IVC are unremarkable. Right kidney: Right kidney measures 9.1 cm in length. Superior right renal cyst measuring up to 2.7 cm. No hydronephrosis or stone. Left kidney: Left kidney measures 9.9 cm in length. No hydronephrosis or stone. Left kidney is not well-visualized due to body habitus and overlying bowel gas. Bladder: Visualized portions of the bladder are grossly unremarkable. IMPRESSION: No hydronephrosis or stone.
[2020-02-23 18:10] VITALS: BP 123/57
[2020-02-23] MEDS: 1/2NS w/KCl 20mEq 1000ml 1,000 ML IV SCH (18:11)
[2020-02-23] MEDS: Zosyn 2.25 gm in D5W 55ml IV SCH (18:12)
[2020-02-23 20:00] VITALS: BP 128/59
[2020-02-23] MEDS ORDERED: Vancomycin 1.5gm/NS Premix q24h IVPB ONE (20:00)
--- NOTE | 2020-02-23 20:32 | History & Physical ---
History and Physical History & Physicial History and Physical HPI Patient is a 79-year-old woman admitted with generalized weakness, she fell out of bed yesterday and was on the floor for a long time and was unable to move because she was so weak. She denies any fever or chills. She denies any chest pain or shortness of breath. She is alert and oriented x3. She denies any blurry vision or focal weakness. Allergies: CODEINE (Verified Allergy, Unknown, 02/22/18) SULFA (SULFONAMIDE ANTIBIOTICS) (Verified Allergy, Unknown, 02/22/18) Past Medical History: Previous CVA, Diabetes, Hypertension All Other Systems: negative except mentioned in HPI FH: NC SH: NC Physical Exam Vital Signs Noted Date Time Temp Pulse Resp B/P (MAP) Pulse Ox O2 Delivery O2 Flow Rate FiO2 02/23/20 13:51 99.5 104 20 147/62 (90) 98 Room Air General Appearance: no apparent distress, alert, GCS 15, non-toxic Head: normocephalic, atraumatic Eyes: bilateral eye normal inspection, bilateral eye PERRL ENT: hearing grossly normal, normal pharynx, no angioedema, normal voice Neck: full range of motion, supple/symm/no masses Respiratory: chest non-tender, speaking full sentences Cardiovascular: HS1, HS2 normal, regular rate, rhythm, no edema Gastrointestinal: normal bowel sounds, non tender, soft, non-distended, no guarding, no rebound Rectal: deferred Genitourinary: no CVA tenderness Musculoskeletal: bilateral calf tenderness and edema Neurologic: comfort advisor III-XII nml as tested, oriented x3 Skin: other - BL LE venous stasis dermatitis, RLE medial lower leg venous stasis superficial ulceration, no erythema or crepitus Impression: Weakness Possible Rhabdomyolysis Acute renal failure Cellulitis Hypertension Diabetes Previous CVA Failure to thrive Plan IVF IV antibiotics Monitor 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 Patient also has elevated BUN/ creatinine doubled from baseline from 2 years ago. Patient given 1 L of IV fluids. Ultrasound demonstrates no evidence for DVT. CT demonstrates no acute intracranial pathology. Patient will be admitted for further treatment and evaluation. Laboratory Tests Test 02/23/20 14:10 White Blood Count 2.9 K/UL (4.8-10.8) L Red Blood Count 4.95 M/UL (4.20-5.40) Hemoglobin 13.9 G/DL (12.0-16.0) Hematocrit 44.3 % (37.0-47.0) Mean Corpuscular Volume 89 FL (80-99) Mean Corpuscular Hemoglobin 28.1 PG (27.0-31.0) Mean Corpuscular Hemoglobin Concent 31.4 G/DL (32.0-36.0) L Red Cell Distribution Width 11.8 % (11.6-14.8) Platelet Count 189 K/UL (150-450) Mean Platelet Volume 10.0 FL (6.5-10.1) Neutrophils (%) (Auto) % (45.0-75.0) Lymphocytes (%) (Auto) % (20.0-45.0) Monocytes (%) (Auto) % (1.0-10.0) Eosinophils (%) (Auto) % (0.0-3.0) Basophils (%) (Auto) % (0.0-2.0) Differential Total Cells Counted 100 Neutrophils % (Manual) 67 % (45-75) Lymphocytes % (Manual) 17 % (20-45) L Monocytes % (Manual) 13 % (1-10) H Eosinophils % (Manual) 2 % (0-3) Basophils % (Manual) 0 % (0-2) Band Neutrophils 1 % (0-8) Platelet Estimate Adequate Platelet Morphology Normal Red Blood Cell Morphology Normal Prothrombin Time 11.3 SEC (9.30-11.50) Prothrombin Time INR 1.0 (0.9-1.1) Activated Partial Thromboplast Time 27 SEC (23-33) Urine Color Pale yellow Urine Appearance Clear Urine pH 6 (4.5-8.0) Urine Specific [place] 1.015 (1.005-1.035) Urine Protein 2+ (NEGATIVE) H Urine Glucose (UA) Negative (NEGATIVE) Urine Ketones Negative (NEGATIVE) Urine Blood Negative (NEGATIVE) Urine Nitrite Negative (NEGATIVE) Urine Bilirubin Negative (NEGATIVE) Urine Urobilinogen Normal MG/DL (0.0-1.0) Urine Leukocyte Esterase Negative (NEGATIVE) Urine RBC 0 /HPF (0 - 2) Urine WBC 0 /HPF (0 - 2) Urine Squamous Epithelial Cells Few /LPF (NONE/OCC) Urine Bacteria Few /HPF (NONE) Urine Mucus Occasional /LPF Sodium Level 135 MMOL/L (136-145) L Potassium Level 4.2 MMOL/L (3.5-5.1) Chloride Level 95 MMOL/L (98-107) L Carbon Dioxide Level 30 MMOL/L (21-32) Anion Gap 10 mmol/L (5-15) Blood Urea Nitrogen 20 mg/dL (7-18) H Creatinine 2.0 MG/DL (0.55-1.30) H Estimated Glomerular Filtration Rate 29.1 mL/min (>60) Glucose Level 93 MG/DL (74-106) Lactic Acid Level 1.80 mmol/L (0.4-2.0) Calcium Level 8.5 MG/DL (8.5-10.1) Phosphorus Level 4.4 MG/DL (2.5-4.9) Magnesium Level 1.9 MG/DL (1.8-2.4) Total Bilirubin 0.3 MG/DL (0.2-1.0) Aspartate Amino Transferase (AST) 27 U/L (15-37) Alanine Aminotransferase (ALT) 22 U/L (12-78) Alkaline Phosphatase 89 U/L (46-116) Total Creatine Kinase 96 U/L (26-308) Creatine Kinase MB 1.1 NG/ML (0.0-3.6) Creatine Kinase MB Relative Index 1.1 Troponin I 0.000 ng/mL (0.000-0.056) Pro-B-Type Natriuretic Peptide 114 pg/mL (0-125) Total Protein 8.5 G/DL (6.4-8.2) H Albumin 3.5 G/DL (3.4-5.0) Globulin 5.0 g/dL Albumin/Globulin Ratio 0.7 (1.0-2.7) L EKG: Rate: 96 Rhythm: NSR, no PVC's, no ectopy, no acute ST changes Chest X-Ray: no consolidation, no effusion, no pneumothorax, No acute disease Willam Denise MD Feb 23, 2020 20:32
[2020-02-23] MEDS: Docusate 100mg cap ORAL SCH (20:42)
[2020-02-23] MEDS: NovoLOG Insulin Flexpen SUBQ SCH (20:45)
[2020-02-23] MEDS: Heparin 5000 units/ml inj SUBQ SCH (20:45)
[2020-02-24] VITALS: BP 135/78
[2020-02-24] MEDS: 1/2NS w/KCl 20mEq 1000ml 1,000 ML IV SCH ×2 (00:51→10:20)
[2020-02-24] MEDS: Zosyn 2.25 gm in D5W 55ml IV SCH ×3 (00:51→12:34)
[2020-02-24 04:00] VITALS: BP 140/76
[2020-02-24] MEDS: NovoLOG Insulin Flexpen SUBQ SCH ×4 (05:29→20:46)
[2020-02-24 07:51] LABS: BASOPHILS % (AUTO) 2.8 % (0.0-2.0); EOSINOPHILS % (AUTO) 1.8 % (0.0-3.0); HEMATOCRIT 40.2 % (37.0-47.0); HEMOGLOBIN 12.5 G/DL (12.0-16.0); LYMPHOCYTES % (AUTO) 25.6 % (20.0-45.0); MEAN CORPUSCULAR VOLUME 93 FL (80-99); MONOCYTES % (AUTO) 15.4 % (1.0-10.0); NEUTROPHILS % (AUTO) 54.5 % (45.0-75.0); PLATELET COUNT 150 K/UL (150-450); RED BLOOD COUNT 4.33 M/UL (4.20-5.40); RED CELL DISTRIBUTION WIDTH 13.4 % (11.6-14.8); WHITE BLOOD COUNT 3.8 K/UL (4.8-10.8)
[2020-02-24 08:00] VITALS: BP 134/71
[2020-02-24 08:16] LABS: ALANINE AMINOTRANSFERASE 24 U/L (12-78); ALBUMIN/GLOBULIN RATIO 0.7 (1.0-2.7); ALKALINE PHOSPHATASE 77 U/L (46-116); ANION GAP 9 mmol/L (5-15); ASPARTATE AMINO TRANSFERASE 26 U/L (15-37); BILIRUBIN,TOTAL 0.2 MG/DL (0.2-1.0); BLOOD UREA NITROGEN 14 mg/dL (7-18); CALCIUM 8.1 MG/DL (8.5-10.1); CARBON DIOXIDE 29 MMOL/L (21-32); CHLORIDE 95 MMOL/L (98-107); CREATININE 1.7 MG/DL (0.55-1.30); POTASSIUM 3.9 MMOL/L (3.5-5.1); SODIUM 132 MMOL/L (136-145)
[2020-02-24] MEDS: Docusate 100mg cap ORAL SCH ×2 (10:08→20:45)
[2020-02-24] MEDS: Heparin 5000 units/ml inj SUBQ SCH ×2 (10:09→20:46)
--- NOTE | 2020-02-24 10:15 | Consultation ---
History of Present Illness General Date patient seen: Feb 24, 2020 Reason for Hospitalization: Multiple Trauma/Fall Present Illness HPI This is a very pleasant 79-year-old female who was brought in by her daughter for generalized weakness to improve medics in emergency department. Patient states that she fell out of bed recently and was on the floor for a long time and was unable to move because she was so weak. She denies any fever or chills. She denies any chest pain or shortness of breath. She is alert and oriented x3. She denies any blurry vision or focal weakness. Patient states that she is unable to get around which is unusual for her. On admission identified to have a abnormal wound in her right medial ankle with skin changes as well as edema in her left ankle and some discomfort. Surgery called to evaluate and assist with care. Patient seen, patient evaluated, chart reviewed patient has minimal recollection of her fall and history. Poor historian. States she does have diabetes and did have a wound on her right ankle that was open prior but has healed. Allergies: Coded Allergies: CODEINE (Verified Allergy, Unknown, 02/22/18) SULFA (SULFONAMIDE ANTIBIOTICS) (Verified Allergy, Unknown, 02/22/18) COVID-19 Screening Contact w/high risk pt: No Recent Travel to affected area: No Experienced COVID-19 symptoms?: No Medication History Scheduled Ampicillin Trihydrate (Ampicillin Trihydrate), 500 MG ORAL EVERY 6 HOURS Aspirin* (Aspirin*), 81 MG ORAL DAILY Atorvastatin (Lipitor), 80 MG ORAL BEDTIME Ciprofloxacin (Ciprofloxacin), 500 MG PO BID Furosemide* (Lasix*), 20 MG ORAL DAILY, (Reported) Gabapentin* (Gabapentin*), 300 MG ORAL BEDTIME, (Reported) Glimepiride (Glimepiride), 2 MG ORAL BEFORE BREAKFAST, (Reported) Metformin Hcl* (Metformin Hcl*), 500 MG ORAL TWICE A DAY Potassium Chloride (Potassium Chloride), 10 MEQ ORAL TWICE A DAY, (Reported) Scheduled PRN Tramadol Hcl* (Ultram*), 50 MG ORAL Q6H PRN for For Pain, (Reported) Patient History Limited by: age, medical condition History Provided By: Patient, Medical Record, PMD Healthcare decision maker Resuscitation status Advanced Directive on File Past Medical/Surgical History Past Medical/Surgical History: (1) HTN (hypertension) (2) Edema of both legs (3) T2DM (type 2 diabetes mellitus) (4) H/O: CVA (cerebrovascular accident) (5) Peripheral neuropathy (6) HLD (hyperlipidemia) (7) Acute renal failure (8) Generalized weakness (9) Failure to thrive (10) Leukocytosis (11) AMS (altered mental status) Review of Systems Review of Symptoms General ROS: no weight loss or fever Psychological ROS: no depression or mood changes, no memory loss Ophthalmic ROS: no visual changes or eye irritation ENT ROS: no nasal congestion, hearing loss, dizziness Allergy and Immunology ROS: no allergic symptoms or urticaria Hematological and Lymphatic ROS: no swollen glands, unusual bleeding or bruising Endocrine ROS: no polyuria, polydipsia, weight changes, temperature intolerance Respiratory ROS: no cough, shortness of breath, or wheezing Cardiovascular ROS: no chest pain or dyspnea on exertion Gastrointestinal ROS: denies abdominal pain, bright red blood in stool. Musculoskeletal ROS: no myalgias or arthralgias Neurological ROS: no TIA or stroke symptoms Dermatological ROS: no new or changing skin lesions, rashes or pruritis Physical Exam Physical Exam General appearance: alert, cooperative, no distress, appears stated age Head: Normocephalic, without obvious abnormality, atraumatic Eyes: conjunctivae/corneas clear. PERRL, EOM's intact. Fundi benign Throat: Lips, mucosa, and tongue normal. Teeth and gums normal Neck: supple, symmetrical, trachea midline, no adenopathy, thyroid: not enlarged, symmetric, no tenderness/mass/nodules, no carotid bruit and no JVD Lungs: clear to auscultation bilaterally Heart: regular rate and rhythm, S1, S2 normal, no murmur, click, rub or gallop Abdomen: soft, non-tender. Bowel sounds normal. No masses, no organomegaly Extremities: extremities left ankle edema Pulses: 2+ and symmetric Skin: Skin see below Neurologic: Grossly normal Last 24 Hour Vital Signs Date Time Temp Pulse Resp B/P (MAP) Pulse Ox O2 Delivery O2 Flow Rate FiO2 02/24/20 04:00 98.4 102 20 140/76 (97) 93 02/24/20 00:00 99.5 91 20 135/78 (97) 94 02/23/20 21:00 Room Air 02/23/20 20:38 Room Air 02/23/20 20:00 99.3 79 20 128/59 (82) 93 02/23/20 18:10 99.0 90 16 123/57 (79) 95 02/23/20 17:50 98.1 90 18 135/60 98 Room Air 02/23/20 15:33 98.1 02/23/20 15:31 98.1 90 18 135/60 98 Room Air 02/23/20 14:30 96 21 Room Air 02/23/20 13:55 99.5 96 21 147/62 94 Room Air 02/23/20 13:51 99.5 104 20 147/62 (90) 98 Room Air Laboratory Tests Test 02/23/20 14:10 02/24/20 06:50 White Blood Count 2.9 K/UL (4.8-10.8) L 3.8 K/UL (4.8-10.8) L Red Blood Count 4.95 M/UL (4.20-5.40) 4.33 M/UL (4.20-5.40) Hemoglobin 13.9 G/DL (12.0-16.0) 12.5 G/DL (12.0-16.0) Hematocrit 44.3 % (37.0-47.0) 40.2 % (37.0-47.0) Mean Corpuscular Volume 89 FL (80-99) 93 FL (80-99) Mean Corpuscular Hemoglobin 28.1 PG (27.0-31.0) 29.0 PG (27.0-31.0) Mean Corpuscular Hemoglobin Concent 31.4 G/DL (32.0-36.0) L 31.2 G/DL (32.0-36.0) L Red Cell Distribution Width 11.8 % (11.6-14.8) 13.4 % (11.6-14.8) Platelet Count 189 K/UL (150-450) 150 K/UL (150-450) Mean Platelet Volume 10.0 FL (6.5-10.1) 10.5 FL (6.5-10.1) H Neutrophils (%) (Auto) % (45.0-75.0) 54.5 % (45.0-75.0) Lymphocytes (%) (Auto) % (20.0-45.0) 25.6 % (20.0-45.0) Monocytes (%) (Auto) % (1.0-10.0) 15.4 % (1.0-10.0) H Eosinophils (%) (Auto) % (0.0-3.0) 1.8 % (0.0-3.0) Basophils (%) (Auto) % (0.0-2.0) 2.8 % (0.0-2.0) H Differential Total Cells Counted 100 Neutrophils % (Manual) 67 % (45-75) Lymphocytes % (Manual) 17 % (20-45) L Monocytes % (Manual) 13 % (1-10) H Eosinophils % (Manual) 2 % (0-3) Basophils % (Manual) 0 % (0-2) Band Neutrophils 1 % (0-8) Platelet Estimate Adequate Platelet Morphology Normal Red Blood Cell Morphology Normal Prothrombin Time 11.3 SEC (9.30-11.50) Prothromb Time International Ratio 1.0 (0.9-1.1) Activated Partial Thromboplast Time 27 SEC (23-33) Urine Color Pale yellow Urine Appearance Clear Urine pH 6 (4.5-8.0) Urine Specific [place] 1.015 (1.005-1.035) Urine Protein 2+ (NEGATIVE) H Urine Glucose (UA) Negative (NEGATIVE) Urine Ketones Negative (NEGATIVE) Urine Blood Negative (NEGATIVE) Urine Nitrite Negative (NEGATIVE) Urine Bilirubin Negative (NEGATIVE) Urine Urobilinogen Normal MG/DL (0.0-1.0) Urine Leukocyte Esterase Negative (NEGATIVE) Urine RBC 0 /HPF (0 - 2) Urine WBC 0 /HPF (0 - 2) Urine Squamous Epithelial Cells Few /LPF (NONE/OCC) Urine Bacteria Few /HPF (NONE) Urine Mucus Occasional /LPF Urine Random Sodium 92 mmol/L (20-110) Urine Creatinine 150.9 MG/DL (30.0-125.0) H Sodium Level 135 MMOL/L (136-145) L 132 MMOL/L (136-145) L Potassium Level 4.2 MMOL/L (3.5-5.1) 3.9 MMOL/L (3.5-5.1) Chloride Level 95 MMOL/L (98-107) L 95 MMOL/L (98-107) L Carbon Dioxide Level 30 MMOL/L (21-32) 29 MMOL/L (21-32) Anion Gap 10 mmol/L (5-15) 9 mmol/L (5-15) Blood Urea Nitrogen 20 mg/dL (7-18) H 14 mg/dL (7-18) Creatinine 2.0 MG/DL (0.55-1.30) H 1.7 MG/DL (0.55-1.30) H Estimat Glomerular Filtration Rate 29.1 mL/min (>60) 35.1 mL/min (>60) Glucose Level 93 MG/DL (74-106) 91 MG/DL (74-106) Lactic Acid Level 1.80 mmol/L (0.4-2.0) Calcium Level 8.5 MG/DL (8.5-10.1) 8.1 MG/DL (8.5-10.1) L Phosphorus Level 4.4 MG/DL (2.5-4.9) Magnesium Level 1.9 MG/DL (1.8-2.4) Total Bilirubin 0.3 MG/DL (0.2-1.0) 0.2 MG/DL (0.2-1.0) Aspartate Amino Transf (AST/SGOT) 27 U/L (15-37) 26 U/L (15-37) Alanine Aminotransferase (ALT/SGPT) 22 U/L (12-78) 24 U/L (12-78) Alkaline Phosphatase 89 U/L (46-116) 77 U/L (46-116) Total Creatine Kinase 96 U/L (26-308) Creatine Kinase MB 1.1 NG/ML (0.0-3.6) Creatine Kinase MB Relative Index 1.1 Troponin I 0.000 ng/mL (0.000-0.056) 0.000 ng/mL (0.000-0.056) Pro-B-Type Natriuretic Peptide 114 pg/mL (0-125) Total Protein 8.5 G/DL (6.4-8.2) H 7.4 G/DL (6.4-8.2) Albumin 3.5 G/DL (3.4-5.0) 3.0 G/DL (3.4-5.0) L Globulin 5.0 g/dL 4.4 g/dL Albumin/Globulin Ratio 0.7 (1.0-2.7) L 0.7 (1.0-2.7) L Thyroid Stimulating Hormone (TSH) 0.997 uiU/mL (0.358-3.740) Height (Feet): 5 Height (Inches): 6.00 Weight (Pounds): 203 Medications Current Medications Medications (Trade) Dose Ordered Sig/Farnaz Route PRN Reason Start Time Stop Time Status Last Admin Dose Admin Acetaminophen (Tylenol) 650 mg Q4H PRN ORAL Mild Pain (Pain Scale 1-3) 02/23/20 15:45 03/24/20 15:44 Albuterol/ Ipratropium (Albuterol/ Ipratropium) 3 ml Q6H PRN HHN Shortness of Breath 02/23/20 15:45 02/28/20 15:44 Dextrose (Dextrose 50%) 25 ml Q30M PRN IV Hypoglycemia 02/23/20 15:45 05/23/20 15:44 Dextrose (Dextrose 50%) 25 ml Q30M PRN IV Hypoglycemia 02/23/20 19:00 05/23/20 18:59 Dextrose (Dextrose 50%) 50 ml Q30M PRN IV Hypoglycemia 02/23/20 15:45 05/23/20 15:44 Dextrose (Dextrose 50%) 50 ml Q30M PRN IV Hypoglycemia 02/23/20 19:00 05/23/20 18:59 Docusate Sodium (Colace) 100 mg EVERY 12 HOURS ORAL 02/23/20 21:00 03/24/20 20:59 02/23/20 20:42 Famotidine (Pepcid) 40 mg DAILY ORAL 02/24/20 09:00 05/24/20 08:59 Heparin Sodium (Porcine) (Heparin 5000 units/ml) 5,000 units EVERY 12 HOURS SUBQ 02/23/20 21:00 04/08/20 20:59 02/23/20 20:45 Insulin Aspart (NovoLOG) BEFORE MEALS AND HS SUBQ 02/23/20 21:00 05/23/20 20:59 Ondansetron HCl (Zofran) 4 mg Q6H PRN IVP Nausea & Vomiting 02/23/20 15:45 03/24/20 15:44 Piperacillin Sod/ Tazobactam Sod 2.25 gm/Dextrose 55 ml @ 110 mls/hr Q6HR IV 02/23/20 18:00 03/01/20 17:59 02/24/20 05:26 Sodium 1,000 ml @ 125 mls/hr Q8H IV 02/23/20 18:30 03/24/20 18:29 02/24/20 00:51 Vancomycin HCl ([facility] pharmacy to dose) 1 ea DAILY PRN MISC Per rx protocol 02/23/20 15:45 03/24/20 15:44 Assessment/Plan Problem List: (1) Ulcer of right ankle Assessment & Plan: 79-year-old female with a abnormal ulcer in her right medial ankle. States that it was open prior and oozing but has been healed since. Outpatient care has been provided. 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 Skin changes of venous disease noted. Discussed with patient. Local care provided to ensure it does not reopen and worsen. Duplex ordered. ICD Codes: L97.319 - Non-pressure chronic ulcer of right ankle with unspecified severity SNOMED: 50542262, 129204471 (2) Left ankle swelling Assessment & Plan: Patient has significant edema around her left ankle. Recent fall possible injury. Plain films ordered. Will follow with recommendations. On examination mild tenderness on palpation. ICD Codes: M25.472 - Effusion, left ankle SNOMED: 618369954 (3) Failure to thrive Assessment & Plan: Nutritional optimization currently tolerating diet encourage oral intake SNOMED: 35296210 (4) Edema of both legs ICD Codes: R60.0 - Localized edema SNOMED: 18747099, 75376097, [id number] Kyrie Morales Feb 24, 2020 10:15
--- NOTE | 2020-02-24 10:19 | Diagnostic Imaging Report ---
EXAM: XR Left Ankle Complete, 3 or More Views CLINICAL HISTORY: SWELL TECHNIQUE: Frontal, lateral and oblique views of the left ankle. COMPARISON: None FINDINGS: Bones/joints: No displaced fracture or dislocation identified. Osteopenia. Ankle mortise is intact. Small posterior and plantar calcaneal spurs. Soft tissues: Soft tissue swelling. Small calcifications in the lateral ankle and medial lower leg soft tissues may represent phleboliths. IMPRESSION: 1. No displaced fracture or dislocation identified. 2. Severe soft tissue swelling.
[2020-02-24 12:00] VITALS: BP 141/82
[2020-02-24 16:00] VITALS: BP 133/70
[2020-02-24 16:23] LABS: ANION GAP 8 mmol/L (5-15); BLOOD UREA NITROGEN 13 mg/dL (7-18); CARBON DIOXIDE 29 MMOL/L (21-32); CHLORIDE 98 MMOL/L (98-107); CREATININE 1.7 MG/DL (0.55-1.30); POTASSIUM 3.9 MMOL/L (3.5-5.1); SODIUM 135 MMOL/L (136-145)
--- NOTE | 2020-02-24 17:17 | Pulmonology Progress Note ---
Subjective ROS Limited/Unobtainable: No Constitutional: Reports: no symptoms Allergies: Coded Allergies: CODEINE (Verified Allergy, Unknown, 02/22/18) SULFA (SULFONAMIDE ANTIBIOTICS) (Verified Allergy, Unknown, 02/22/18) Objective Last 24 Hour Vital Signs Date Time Temp Pulse Resp B/P (MAP) Pulse Ox O2 Delivery O2 Flow Rate FiO2 02/24/20 16:00 100.0 87 16 133/70 (91) 96 02/24/20 12:00 98.4 91 17 141/82 (101) 97 02/24/20 09:00 Room Air 02/24/20 08:00 99.5 99 16 134/71 (92) 93 02/24/20 04:00 98.4 102 20 140/76 (97) 93 02/24/20 00:00 99.5 91 20 135/78 (97) 94 02/23/20 21:00 Room Air 02/23/20 20:38 Room Air 02/23/20 20:00 99.3 79 20 128/59 (82) 93 02/23/20 18:10 99.0 90 16 123/57 (79) 95 02/23/20 17:50 98.1 90 18 135/60 98 Room Air Intake and Output 02/23/20 02/24/20 19:00 07:00 # Voids 4 # Bowel Movements 1 Laboratory Tests 02/24/20 06:50: White Blood Count 3.8L, Red Blood Count 4.33, Hemoglobin 12.5, Hematocrit 40.2, Mean Corpuscular Volume 93, Mean Corpuscular Hemoglobin 29.0, Mean Corpuscular Hemoglobin Concent 31.2L, Red Cell Distribution Width 13.4, Platelet Count 150, Mean Platelet Volume 10.5H, Neutrophils (%) (Auto) 54.5, Lymphocytes (%) (Auto) 25.6, Monocytes (%) (Auto) 15.4H, Eosinophils (%) (Auto) 1.8, Basophils (%) ( Auto) 2.8H, Sodium Level 132L, Potassium Level 3.9, Chloride Level 95L, Carbon Dioxide Level 29, Anion Gap 9, Blood Urea Nitrogen 14, Creatinine 1.7H, Estimat Glomerular Filtration Rate 35.1, Glucose Level 91, Calcium Level 8.1L, Total Bilirubin 0.2, Aspartate Amino Transf (AST/SGOT) 26, Alanine Aminotransferase ( ALT/SGPT) 24, Alkaline Phosphatase 77, Troponin I 0.000, Total Protein 7.4, Albumin 3.0L, Globulin 4.4, Albumin/Globulin Ratio 0.7L, Thyroid Stimulating Hormone (TSH) 0.997 02/24/20 15:45: Sodium Level 135L, Potassium Level 3.9, Chloride Level 98, Carbon Dioxide Level 29, Anion Gap 8, Blood Urea Nitrogen 13, Creatinine 1.7H, Estimat Glomerular Filtration Rate 35.1, Glucose Level 118H, Calcium Level 8.0L Current Medications Medications (Trade) Dose Ordered Sig/Farnaz Route PRN Reason Start Time Stop Time Status Last Admin Dose Admin Acetaminophen (Tylenol) 650 mg Q4H PRN ORAL Mild Pain (Pain Scale 1-3) 02/23/20 15:45 03/24/20 15:44 Albuterol/ Ipratropium (Albuterol/ Ipratropium) 3 ml Q6H PRN HHN Shortness of Breath 02/23/20 15:45 02/28/20 15:44 Dextrose (Dextrose 50%) 25 ml Q30M PRN IV Hypoglycemia 02/23/20 15:45 05/23/20 15:44 Dextrose (Dextrose 50%) 25 ml Q30M PRN IV Hypoglycemia 02/23/20 19:00 05/23/20 18:59 Dextrose (Dextrose 50%) 50 ml Q30M PRN IV Hypoglycemia 02/23/20 15:45 05/23/20 15:44 Dextrose (Dextrose 50%) 50 ml Q30M PRN IV Hypoglycemia 02/23/20 19:00 05/23/20 18:59 Docusate Sodium (Colace) 100 mg EVERY 12 HOURS ORAL 02/23/20 21:00 03/24/20 20:59 02/24/20 10:08 Famotidine (Pepcid) 40 mg DAILY ORAL 02/24/20 09:00 05/24/20 08:59 02/24/20 10:08 Heparin Sodium (Porcine) (Heparin 5000 units/ml) 5,000 units EVERY 12 HOURS SUBQ 02/23/20 21:00 04/08/20 20:59 02/24/20 10:09 Insulin Aspart (NovoLOG) BEFORE MEALS AND HS SUBQ 02/23/20 21:00 05/23/20 20:59 Ondansetron HCl (Zofran) 4 mg Q6H PRN IVP Nausea & Vomiting 02/23/20 15:45 03/24/20 15:44 Piperacillin Sod/ Tazobactam Sod 3.375 gm/Sodium Chloride 110 ml @ 27.5 mls/hr EVERY 8 HOURS IVPB 02/24/20 22:00 02/29/20 21:59 Potassium Chloride 20 meq/ Sodium Chloride 1,010 ml @ 60 mls/hr [id number] IV 02/24/20 12:30 03/25/20 12:29 02/24/20 12:35 Vancomycin HCl (Vanco pharmacy to dose) 1 ea DAILY PRN MISC Per rx protocol 02/23/20 15:45 03/24/20 15:44 Assessment/Plan Assessment/Plan Progress Note HPI Patient is a 79-year-old woman admitted with generalized weakness, she fell out of bed yesterday and was on the floor for a long time and was unable to move because she was so weak. She denies any fever or chills. She denies any chest pain or shortness of breath. She is alert and oriented x3. She denies any blurry vision or focal weakness. Allergies: CODEINE (Verified Allergy, Unknown, 02/22/18) SULFA (SULFONAMIDE ANTIBIOTICS) (Verified Allergy, Unknown, 02/22/18) Past Medical History: Previous CVA, Diabetes, Hypertension Physical Exam Vital Signs Noted General Appearance: no apparent distress, alert, GCS 15, non-toxic Head: normocephalic, atraumatic Eyes: bilateral eye normal inspection, bilateral eye PERRL ENT: hearing grossly normal, normal pharynx, no angioedema, normal voice Neck: full range of motion, supple/symm/no masses Respiratory: chest non-tender, speaking full sentences Cardiovascular: HS1, HS2 normal, regular rate, rhythm, no edema Gastrointestinal: normal bowel sounds, non tender, soft, non-distended, no guarding, no rebound Rectal: deferred Genitourinary: no CVA tenderness Musculoskeletal: bilateral calf tenderness and edema Neurologic: neuropsychiatric aide III-XII nml as tested, oriented x3 Skin: other - BL LE venous stasis dermatitis, RLE medial lower leg venous stasis superficial ulceration, no erythema or crepitus Impression: Weakness Possible Rhabdomyolysis Acute renal failure Cellulitis Hypertension Diabetes Previous CVA Failure to thrive Plan IVF IV antibiotics Wound consult/Surgery consult 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 Patient also has elevated BUN/ creatinine doubled from baseline from 2 years ago. Patient given 1 L of IV fluids. Ultrasound demonstrates no evidence for DVT. CT demonstrates no acute intracranial pathology. Patient will be admitted for further treatment and evaluation. Laboratory Tests Test 02/23/20 14:10 White Blood Count 2.9 K/UL (4.8-10.8) L Red Blood Count 4.95 M/UL (4.20-5.40) Hemoglobin 13.9 G/DL (12.0-16.0) Hematocrit 44.3 % (37.0-47.0) Mean Corpuscular Volume 89 FL (80-99) Mean Corpuscular Hemoglobin 28.1 PG (27.0-31.0) Mean Corpuscular Hemoglobin Concent 31.4 G/DL (32.0-36.0) L Red Cell Distribution Width 11.8 % (11.6-14.8) Platelet Count 189 K/UL (150-450) Mean Platelet Volume 10.0 FL (6.5-10.1) Neutrophils (%) (Auto) % (45.0-75.0) Lymphocytes (%) (Auto) % (20.0-45.0) Monocytes (%) (Auto) % (1.0-10.0) Eosinophils (%) (Auto) % (0.0-3.0) Basophils (%) (Auto) % (0.0-2.0) Differential Total Cells Counted 100 Neutrophils % (Manual) 67 % (45-75) Lymphocytes % (Manual) 17 % (20-45) L Monocytes % (Manual) 13 % (1-10) H Eosinophils % (Manual) 2 % (0-3) Basophils % (Manual) 0 % (0-2) Band Neutrophils 1 % (0-8) Platelet Estimate Adequate Platelet Morphology Normal Red Blood Cell Morphology Normal Prothrombin Time 11.3 SEC (9.30-11.50) Prothrombin Time INR 1.0 (0.9-1.1) Activated Partial Thromboplast Time 27 SEC (23-33) Urine Color Pale yellow Urine Appearance Clear Urine pH 6 (4.5-8.0) Urine Specific [place] 1.015 (1.005-1.035) Urine Protein 2+ (NEGATIVE) H Urine Glucose (UA) Negative (NEGATIVE) Urine Ketones Negative (NEGATIVE) Urine Blood Negative (NEGATIVE) Urine Nitrite Negative (NEGATIVE) Urine Bilirubin Negative (NEGATIVE) Urine Urobilinogen Normal MG/DL (0.0-1.0) Urine Leukocyte Esterase Negative (NEGATIVE) Urine RBC 0 /HPF (0 - 2) Urine WBC 0 /HPF (0 - 2) Urine Squamous Epithelial Cells Few /LPF (NONE/OCC) Urine Bacteria Few /HPF (NONE) Urine Mucus Occasional /LPF Sodium Level 135 MMOL/L (136-145) L Potassium Level 4.2 MMOL/L (3.5-5.1) Chloride Level 95 MMOL/L (98-107) L Carbon Dioxide Level 30 MMOL/L (21-32) Anion Gap 10 mmol/L (5-15) Blood Urea Nitrogen 20 mg/dL (7-18) H Creatinine 2.0 MG/DL (0.55-1.30) H Estimated Glomerular Filtration Rate 29.1 mL/min (>60) Glucose Level 93 MG/DL (74-106) Lactic Acid Level 1.80 mmol/L (0.4-2.0) Calcium Level 8.5 MG/DL (8.5-10.1) Phosphorus Level 4.4 MG/DL (2.5-4.9) Magnesium Level 1.9 MG/DL (1.8-2.4) Total Bilirubin 0.3 MG/DL (0.2-1.0) Aspartate Amino Transferase (AST) 27 U/L (15-37) Alanine Aminotransferase (ALT) 22 U/L (12-78) Alkaline Phosphatase 89 U/L (46-116) Total Creatine Kinase 96 U/L (26-308) Creatine Kinase MB 1.1 NG/ML (0.0-3.6) Creatine Kinase MB Relative Index 1.1 Troponin I 0.000 ng/mL (0.000-0.056) Pro-B-Type Natriuretic Peptide 114 pg/mL (0-125) Total Protein 8.5 G/DL (6.4-8.2) H Albumin 3.5 G/DL (3.4-5.0) Globulin 5.0 g/dL Albumin/Globulin Ratio 0.7 (1.0-2.7) L EKG: Rate: 96 Rhythm: NSR, no PVC's, no ectopy, no acute ST changes Chest X-Ray: no consolidation, no effusion, no pneumothorax, No acute disease per ED report Willam Denise MD Feb 24, 2020 17:17
--- NOTE | 2020-02-24 19:15 | Consultation ---
DATE OF CONSULTATION: 02/24/2020 NEPHROLOGY CONSULTATION CONSULTING PHYSICIAN: Dinesh Yates MD. REFERRING PHYSICIAN: Alexey Olvera MD and Willam Denise MD. REASON FOR CONSULTATION: Acute kidney injury. HISTORY OF PRESENT ILLNESS: The patient was brought in after the family found her on the floor and she was unable to get up by herself. She was weak. She was found to have elevated BUN and creatinine on admission. The patient has a history of diabetes, hypertension, prior CVA, osteoarthritis. ALLERGIES: To codeine and sulfa. SURGERIES: Cataract. MEDICATIONS: Prior to admission medications, the patient cannot give me a list, but states she takes a blood pressure pill, a diuretic, and a diabetes pill. Per the computer list, it states she was taking ampicillin, aspirin, atorvastatin, Cipro, Lasix, gabapentin, glimepiride, metformin, potassium, and tramadol at home. HABITS: She is a nondrinker and nonsmoker. SYSTEM REVIEW: HEAD, EYES, EARS, NOSE, AND THROAT: History of cataracts treated with surgery. Hearing is good. ENDOCRINE: Diabetes as above. PULMONARY: No shortness of breath or asthma. CARDIAC: No angina or [place]. She has had leg edema in the past and has been on a diuretic. GASTROINTESTINAL: Denies nausea, vomiting, or abdominal pain. GENITOURINARY: No dysuria or hematuria. NEUROLOGIC: History of an old CVA. history of chronic skin ulcer on the right medial malleolus. PHYSICAL EXAMINATION: GENERAL: The patient is obese lady, alert, in no acute distress. VITAL SIGNS: Temperature 98.4, pulse 102, respirations 20, blood pressure 140/68. HEAD, EYES, EARS, NOSE, AND THROAT: Sclerae are nonicteric. Ocular motions intact in all directions. Oral mucosa moist. NECK: No adenopathy. LUNGS: Clear. ABDOMEN: Soft without organomegaly or masses. EXTREMITIES: Showed degenerative changes in the hands, knees, and ankles. No inflammatory arthritis. No edema. SKIN: Shows a healing ulcer right medial malleolus. NEUROLOGIC: She is alert and responsive. Ocular motions intact in all directions. Smile is symmetric. She moves all extremities. She has generalized weakness. PERTINENT LABS: White count 3.8, hemoglobin 12.5. Admission BUN 20, creatinine 2.0. Albumin 3.5. Electrolytes normal. Repeat today sodium 132, potassium 3.9, chloride 95, CO2 29, BUN 14, creatinine 1.7. Troponin is 0. BNP 114. TSH 0.997. Albumin is 3. Urinalysis shows 2+ protein, otherwise negative. Urine creatinine random 150.9. IMPRESSION: 1. Acute kidney injury, likely secondary to diuretic use. 2. Dehydration. 3. Possible underlying chronic kidney disease. 4. Proteinuria, possible diabetic nephropathy. 5. Status post ground level fall. 6. Hypertension. 7. Old CVA. PLAN: Continue IV hydration. Trend laboratories. Hold off on diuretics unless we have a good reason. Monitor her blood pressure and diabetes. Hold on metformin at this time. Dinesh Yates M.D. DR: CAILIN JOB#: [id number] CC:
[2020-02-24 20:00] VITALS: BP 138/72
[2020-02-24] MEDS: Zoysn 3.37gm in NS 100ML IVPB SCH (21:04)
[2020-02-25] VITALS: BP 136/89
[2020-02-25 04:00] VITALS: BP 132/73
[2020-02-25] MEDS: Zoysn 3.37gm in NS 100ML IVPB SCH ×3 (05:16→21:57)
[2020-02-25] MEDS: NovoLOG Insulin Flexpen SUBQ SCH ×4 (05:17→21:00)
--- NOTE | 2020-02-25 07:38 | Diagnostic Imaging Report ---
EXAM: XR Chest, 1 View CLINICAL HISTORY: AMS TECHNIQUE: Frontal view of the chest. COMPARISON: No relevant prior studies available. FINDINGS/IMPRESSION: No focal concept consolidation, pleural effusion, or pneumothorax. Mild, chronically increased interstitial markings. The heart size is within limits. The aorta is calcified.
[2020-02-25 08:00] VITALS: BP 120/90
[2020-02-25 08:01] LABS: ANION GAP 8 mmol/L (5-15); BLOOD UREA NITROGEN 11 mg/dL (7-18); CARBON DIOXIDE 30 MMOL/L (21-32); CHLORIDE 99 MMOL/L (98-107); CREATININE 1.5 MG/DL (0.55-1.30); POTASSIUM 3.5 MMOL/L (3.5-5.1); SODIUM 137 MMOL/L (136-145)
[2020-02-25 08:02] LABS: CALCIUM 8.4 MG/DL (8.5-10.1)
--- NOTE | 2020-02-25 08:28 | General Progress Note ---
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 ISS ST evaluation Aspiration precautions Renal US Renal consultation impression, plan, and exam edited and reviewed in detail care discussed with RN Subjective Allergies: Coded Allergies: CODEINE (Verified Allergy, Unknown, 02/22/18) SULFA (SULFONAMIDE ANTIBIOTICS) (Verified Allergy, Unknown, 02/22/18) Subjective care noted and reviewed Objective Last 24 Hour Vital Signs Date Time Temp Pulse Resp B/P (MAP) Pulse Ox O2 Delivery O2 Flow Rate FiO2 02/25/20 04:00 98.2 88 22 132/73 (92) 95 02/25/20 00:00 97.9 75 22 136/89 (105) 100 02/24/20 21:00 Room Air 02/24/20 20:00 99.3 89 24 138/72 (94) 94 02/24/20 16:00 100.0 87 16 133/70 (91) 96 02/24/20 12:00 98.4 91 17 141/82 (101) 97 02/24/20 09:00 Room Air Intake and Output 02/24/20 02/25/20 19:00 07:00 Intake Total 960 ml 360 ml Output Total 200 ml Balance 960 ml 160 ml Intake Oral 600 ml IV Total 360 ml Other 360 ml Output Urine Total 200 ml # Voids 3 2 # Bowel Movements 1 Laboratory Tests 02/24/20 15:45: Sodium Level 135L, Potassium Level 3.9, Chloride Level 98, Carbon Dioxide Level 29, Anion Gap 8, Blood Urea Nitrogen 13, Creatinine 1.7H, Estimat Glomerular Filtration Rate 35.1, Glucose Level 118H, Calcium Level 8.0L 02/25/20 05:30: Sodium Level 137, Potassium Level 3.5, Chloride Level 99, Carbon Dioxide Level 30, Anion Gap 8, Blood Urea Nitrogen 11, Creatinine 1.5H, Estimat Glomerular Filtration Rate 40.6, Glucose Level 98, Calcium Level 8.4L, Random Vancomycin Level 5.0 Height (Feet): 5 Height (Inches): 6.00 Weight (Pounds): 203 Objective WDWN NAD clear breath sounds bilaterally without rhonchi or wheeze [id number] without MRG NABS nontender no HSM no CCE nonfocal Ishaaya,Alexey M MD Feb 25, 2020 08:28
[2020-02-25] MEDS: Docusate 100mg cap ORAL SCH ×2 (08:32→21:53)
[2020-02-25] MEDS: Heparin 5000 units/ml inj SUBQ SCH ×2 (08:37→21:58)
[2020-02-25] MEDS ORDERED: Vancomycin 1.5gm/NS Premix IVPB ONE (10:00)
[2020-02-25 12:00] VITALS: BP 130/76
--- NOTE | 2020-02-25 13:41 | Surgery Progress Note ---
Surgery Progress Note Subjective Symptoms: improved, tolerating diet, passing flatus Objective Last 24 Hour Vital Signs Date Time Temp Pulse Resp B/P (MAP) Pulse Ox O2 Delivery O2 Flow Rate FiO2 02/25/20 12:00 97.7 76 18 130/76 (94) 94 02/25/20 09:00 Room Air 02/25/20 08:00 98.8 72 18 120/90 (100) 94 02/25/20 04:00 98.2 88 22 132/73 (92) 95 02/25/20 00:00 97.9 75 22 136/89 (105) 100 02/24/20 21:00 Room Air 02/24/20 20:00 99.3 89 24 138/72 (94) 94 02/24/20 16:00 100.0 87 16 133/70 (91) 96 I&O Intake and Output 02/24/20 02/25/20 19:00 07:00 Intake Total 960 ml 447.5 ml Output Total 200 ml Balance 960 ml 247.5 ml Intake Oral 600 ml IV Total 360 ml 87.5 ml Other 360 ml Output Urine Total 200 ml # Voids 3 2 # Bowel Movements 1 Dressing: dry Wound: clean Cardiovascular: RSR Respiratory: clear Abdomen: soft, non-tender, present bowel sounds Extremities: no tenderness, no cyanosis Laboratory Tests Test 02/24/20 15:45 02/25/20 05:30 Sodium Level 135 MMOL/L (136-145) L 137 MMOL/L (136-145) Potassium Level 3.9 MMOL/L (3.5-5.1) 3.5 MMOL/L (3.5-5.1) Chloride Level 98 MMOL/L (98-107) 99 MMOL/L (98-107) Carbon Dioxide Level 29 MMOL/L (21-32) 30 MMOL/L (21-32) Anion Gap 8 mmol/L (5-15) 8 mmol/L (5-15) Blood Urea Nitrogen 13 mg/dL (7-18) 11 mg/dL (7-18) Creatinine 1.7 MG/DL (0.55-1.30) H 1.5 MG/DL (0.55-1.30) H Estimat Glomerular Filtration Rate 35.1 mL/min (>60) 40.6 mL/min (>60) Glucose Level 118 MG/DL (74-106) H 98 MG/DL (74-106) Calcium Level 8.0 MG/DL (8.5-10.1) L 8.4 MG/DL (8.5-10.1) L Random Vancomycin Level 5.0 ug/mL Plan Problems: (1) Ulcer of right ankle Assessment & Plan: 79-year-old female with a abnormal ulcer in her right medial ankle. States that it was open prior and oozing but has been healed since. Outpatient care has been provided. 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 Skin changes of venous disease noted. Discussed with patient. Local care provided to ensure it does not reopen and worsen. Duplex ordered. (2) Left ankle swelling Assessment & Plan: Patient has significant edema around her left ankle. Recent fall possible injury. Plain films ordered. Will follow with recommendations. On examination mild tenderness on palpation. FINDINGS: Bones/joints: No displaced fracture or dislocation identified. Osteopenia. Ankle mortise is intact. Small posterior and plantar calcaneal spurs. Soft tissues: Soft tissue swelling. Small calcifications in the lateral ankle and medial lower leg soft tissues may represent phleboliths. IMPRESSION: 1. No displaced fracture or dislocation identified. 2. Severe soft tissue swelling. (3) Failure to thrive Assessment & Plan: DAILY ESTIMATED NEEDS: Needs based on cardiac, DM/ 67kg abw 25-30 kcals/kg total kcals 1-1.3 g protein/kg 67-87 g total protein 25-30 mL/kg total fluid mLs NUTRITION DIAGNOSIS: Altered nutrition related lab values R/T LOIDA, diabetes as evidenced by elev creat (2.0-> 1.5 trending down), BGs w/ episodes of hypo- and hyperglycemia w/ POC (59-142). CURRENT DIET:CCHO MED, [facility] soft chopped PO DIET RECOMMENDATIONS: CCHO MED, LOW NA/ texture per MUSIC ENGINEER ADDITIONAL RECOMMENDATIONS: * Calibrated bedscale wt * A1C for eval of glycemic control * Monitor BGs closely for hypoglycemia -> monitor for continued fair-good PO intake -> encourage HS snack intake to prevent AM hypoglycemia * MUSIC ENGINEER eval for appropriate texture: h/o CVA, on chopped diet at this time * MVI x 1 as supplement (4) Edema of both legs Kyrie Morales Feb 25, 2020 13:41
--- NOTE | 2020-02-25 13:54 | Nephrology Progress Note ---
Assessment/Plan Problem List: (1) CKD (chronic kidney disease) stage 3, GFR 30-59 ml/min (2) Acute renal failure (3) Generalized weakness (4) HTN (hypertension) (5) T2DM (type 2 diabetes mellitus) Plan reduce iv rate, replace K Subjective Constitutional: Reports: weakness HEENT: Reports: no symptoms Genitourinary: Reports: no symptoms Neurologic/Psychiatric: Reports: weakness Objective Objective Last 24 Hour Vital Signs Date Time Temp Pulse Resp B/P (MAP) Pulse Ox O2 Delivery O2 Flow Rate FiO2 02/25/20 12:00 97.7 76 18 130/76 (94) 94 02/25/20 09:00 Room Air 02/25/20 08:00 98.8 72 18 120/90 (100) 94 02/25/20 04:00 98.2 88 22 132/73 (92) 95 02/25/20 00:00 97.9 75 22 136/89 (105) 100 02/24/20 21:00 Room Air 02/24/20 20:00 99.3 89 24 138/72 (94) 94 02/24/20 16:00 100.0 87 16 133/70 (91) 96 Intake and Output 02/24/20 02/25/20 19:00 07:00 Intake Total 960 ml 447.5 ml Output Total 200 ml Balance 960 ml 247.5 ml Intake Oral 600 ml IV Total 360 ml 87.5 ml Other 360 ml Output Urine Total 200 ml # Voids 3 2 # Bowel Movements 1 Laboratory Tests 02/24/20 15:45: Sodium Level 135L, Potassium Level 3.9, Chloride Level 98, Carbon Dioxide Level 29, Anion Gap 8, Blood Urea Nitrogen 13, Creatinine 1.7H, Estimat Glomerular Filtration Rate 35.1, Glucose Level 118H, Calcium Level 8.0L 02/25/20 05:30: Sodium Level 137, Potassium Level 3.5, Chloride Level 99, Carbon Dioxide Level 30, Anion Gap 8, Blood Urea Nitrogen 11, Creatinine 1.5H, Estimat Glomerular Filtration Rate 40.6, Glucose Level 98, Calcium Level 8.4L, Random Vancomycin Level 5.0 General Appearance: alert, obese EENT: normal ENT inspection Neck: normal alignment Cardiovascular: normal rate Respiratory/Chest: lungs clear Abdomen: non tender Extremities: no edema 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
[2020-02-25 16:00] VITALS: BP 132/64
[2020-02-25 20:00] VITALS: BP 144/72
[2020-02-26] VITALS: BP 147/89
[2020-02-26 04:00] VITALS: BP 153/84
[2020-02-26] MEDS: Zoysn 3.37gm in NS 100ML IVPB SCH ×2 (05:54→14:08)
[2020-02-26] MEDS: NovoLOG Insulin Flexpen SUBQ SCH ×3 (06:30→16:30)
[2020-02-26 07:14] LABS: ANION GAP 6 mmol/L (5-15); BLOOD UREA NITROGEN 10 mg/dL (7-18); CALCIUM 8.3 MG/DL (8.5-10.1); CARBON DIOXIDE 32 MMOL/L (21-32); CHLORIDE 101 MMOL/L (98-107); CREATININE 1.3 MG/DL (0.55-1.30); POTASSIUM 3.5 MMOL/L (3.5-5.1); SODIUM 139 MMOL/L (136-145)
[2020-02-26 08:00] VITALS: BP 128/58
--- NOTE | 2020-02-26 08:55 | General Progress Note ---
Assessment/Plan Assessment/Plan: Impression: Weakness Acute renal failure resolved Cellulitis- improved Hypertension Diabetes Previous CVA Failure to thrive Plan PO antibiotics all noted PT dc planning to home with HH impression, plan, and exam edited and reviewed in detail care discussed with RN Subjective Allergies: Coded Allergies: CODEINE (Verified Allergy, Unknown, 02/22/18) SULFA (SULFONAMIDE ANTIBIOTICS) (Verified Allergy, Unknown, 02/22/18) Subjective care noted and reviewed wants to go home work up negative cultures negatve Objective Last 24 Hour Vital Signs Date Time Temp Pulse Resp B/P (MAP) Pulse Ox O2 Delivery O2 Flow Rate FiO2 02/26/20 08:00 97.9 83 20 128/58 (81) 95 02/26/20 04:00 97.7 86 20 153/84 (107) 95 02/26/20 00:00 98.8 79 20 147/89 (108) 95 02/25/20 21:00 Room Air 02/25/20 20:00 98.4 80 20 144/72 (96) 96 02/25/20 16:00 97.7 85 18 132/64 (86) 96 02/25/20 12:00 97.7 76 18 130/76 (94) 94 02/25/20 09:00 Room Air Intake and Output 02/25/20 02/26/20 19:00 07:00 Intake Total 1532.5 ml 1045.0 ml Output Total 800 ml 600 ml Balance 732.5 ml 445.0 ml Intake Oral 960 ml IV Total 572.5 ml 685.0 ml Other 360 ml Output Urine Total 800 ml 600 ml # Voids 4 1 # Bowel Movements 1 1 Laboratory Tests 02/26/20 05:50: Sodium Level 139, Potassium Level 3.5, Chloride Level 101, Carbon Dioxide Level 32, Anion Gap 6, Blood Urea Nitrogen 10, Creatinine 1.3, Estimat Glomerular Filtration Rate 47.9, Glucose Level 101, Calcium Level 8.3L Height (Feet): 5 Height (Inches): 6.00 Weight (Pounds): 203 Objective WDWN NAD clear breath sounds bilaterally without rhonchi or wheeze [id number] without MRG NABS nontender no HSM no CCE nonfocal alert Alexey Olvera MD Feb 26, 2020 08:55
[2020-02-26] MEDS: Heparin 5000 units/ml inj SUBQ SCH (09:17)
[2020-02-26] MEDS: Docusate 100mg cap ORAL SCH (09:17)
[2020-02-26 11:36] VITALS: BP 123/62
--- NOTE | 2020-02-26 11:39 | Nephrology Progress Note ---
Assessment/Plan Problem List: (1) CKD (chronic kidney disease) stage 3, GFR 30-59 ml/min (2) Acute renal failure (3) Generalized weakness (4) HTN (hypertension) (5) T2DM (type 2 diabetes mellitus) (6) Dehydration Plan reduce iv rate, replace K, agree dc plan Subjective Constitutional: Reports: weakness HEENT: Reports: no symptoms Genitourinary: Reports: no symptoms Neurologic/Psychiatric: Reports: no symptoms Objective Objective Last 24 Hour Vital Signs Date Time Temp Pulse Resp B/P (MAP) Pulse Ox O2 Delivery O2 Flow Rate FiO2 02/26/20 11:36 97.7 77 20 123/62 (82) 95 02/26/20 09:00 Room Air 02/26/20 08:00 97.9 83 20 128/58 (81) 95 02/26/20 04:00 97.7 86 20 153/84 (107) 95 02/26/20 00:00 98.8 79 20 147/89 (108) 95 02/25/20 21:00 Room Air 02/25/20 20:00 98.4 80 20 144/72 (96) 96 02/25/20 16:00 97.7 85 18 132/64 (86) 96 02/25/20 12:00 97.7 76 18 130/76 (94) 94 Intake and Output 02/25/20 02/26/20 19:00 07:00 Intake Total 1532.5 ml 1045.0 ml Output Total 800 ml 600 ml Balance 732.5 ml 445.0 ml Intake Oral 960 ml IV Total 572.5 ml 685.0 ml Other 360 ml Output Urine Total 800 ml 600 ml # Voids 4 1 # Bowel Movements 1 1 Laboratory Tests 02/26/20 05:50: Sodium Level 139, Potassium Level 3.5, Chloride Level 101, Carbon Dioxide Level 32, Anion Gap 6, Blood Urea Nitrogen 10, Creatinine 1.3, Estimat Glomerular Filtration Rate 47.9, Glucose Level 101, Calcium Level 8.3L Height (Feet): 5 Height (Inches): 6.00 Weight (Pounds): 203 General Appearance: no apparent distress, obese EENT: normal ENT inspection Neck: normal alignment Cardiovascular: regular rhythm Respiratory/Chest: lungs clear Abdomen: non tender Extremities: no edema 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
--- NOTE | 2020-02-26 15:31 | Surgery Progress Note ---
Surgery Progress Note Subjective Symptoms: improved, tolerating diet, voiding well Additional Comments d/c [plan with home health Objective Last 24 Hour Vital Signs Date Time Temp Pulse Resp B/P (MAP) Pulse Ox O2 Delivery O2 Flow Rate FiO2 02/26/20 11:36 97.7 77 20 123/62 (82) 95 02/26/20 09:00 Room Air 02/26/20 08:00 97.9 83 20 128/58 (81) 95 02/26/20 04:00 97.7 86 20 153/84 (107) 95 02/26/20 00:00 98.8 79 20 147/89 (108) 95 02/25/20 21:00 Room Air 02/25/20 20:00 98.4 80 20 144/72 (96) 96 02/25/20 16:00 97.7 85 18 132/64 (86) 96 I&O Intake and Output 02/25/20 02/26/20 19:00 07:00 Intake Total 1532.5 ml 1045.0 ml Output Total 800 ml 600 ml Balance 732.5 ml 445.0 ml Intake Oral 960 ml IV Total 572.5 ml 685.0 ml Other 360 ml Output Urine Total 800 ml 600 ml # Voids 4 1 # Bowel Movements 1 1 Dressing: other Wound: other Drains: other Cardiovascular: RSR Respiratory: decreased breath sounds Abdomen: soft, non-tender, present bowel sounds Extremities: edema, no tenderness, no cyanosis Laboratory Tests Test 02/26/20 05:50 Sodium Level 139 MMOL/L (136-145) Potassium Level 3.5 MMOL/L (3.5-5.1) Chloride Level 101 MMOL/L (98-107) Carbon Dioxide Level 32 MMOL/L (21-32) Anion Gap 6 mmol/L (5-15) Blood Urea Nitrogen 10 mg/dL (7-18) Creatinine 1.3 MG/DL (0.55-1.30) Estimat Glomerular Filtration Rate 47.9 mL/min (>60) Glucose Level 101 MG/DL (74-106) Calcium Level 8.3 MG/DL (8.5-10.1) L Plan Problems: (1) Ulcer of right ankle Assessment & Plan: 79-year-old female with a abnormal ulcer in her right medial ankle. States that it was open prior and oozing but has been healed since. Outpatient care has been provided. 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 Skin changes of venous disease noted. Discussed with patient. Local care provided to ensure it does not reopen and worsen. Duplex ordered. (2) Left ankle swelling Assessment & Plan: Patient has significant edema around her left ankle. Recent fall possible injury. Plain films ordered. Will follow with recommendations. On examination mild tenderness on palpation. FINDINGS: Bones/joints: No displaced fracture or dislocation identified. Osteopenia. Ankle mortise is intact. Small posterior and plantar calcaneal spurs. Soft tissues: Soft tissue swelling. Small calcifications in the lateral ankle and medial lower leg soft tissues may represent phleboliths. IMPRESSION: 1. No displaced fracture or dislocation identified. 2. Severe soft tissue swelling. (3) Failure to thrive Assessment & Plan: DAILY ESTIMATED NEEDS: Needs based on cardiac, DM/ 67kg abw 25-30 kcals/kg total kcals 1-1.3 g protein/kg 67-87 g total protein 25-30 mL/kg total fluid mLs NUTRITION DIAGNOSIS: Altered nutrition related lab values R/T LOIDA, diabetes as evidenced by elev creat (2.0-> 1.5 trending down), BGs w/ episodes of hypo- and hyperglycemia w/ POC (59-142). CURRENT DIET:[facility] MED, [facility] soft chopped PO DIET RECOMMENDATIONS: CCHO MED, LOW NA/ texture per DIGITAL MEDIA STRATEGIST ADDITIONAL RECOMMENDATIONS: * Calibrated bedscale wt * A1C for eval of glycemic control * Monitor BGs closely for hypoglycemia -> monitor for continued fair-good PO intake -> encourage HS snack intake to prevent AM hypoglycemia * DIGITAL MEDIA STRATEGIST eval for appropriate texture: h/o CVA, on chopped diet at this time * MVI x 1 as supplement (4) Edema of both legs Kyrie Morales Feb 26, 2020 15:31
[2020-02-26 16:00] VITALS: BP 146/76
--- NOTE | 2020-02-28 09:12 | Discharge Summary ---
Discharge Summary Discharge Summary _ DATE OF ADMISSION: 02/22 DATE OF DISCHARGE: 02/26/2020 DISCHARGED BY: Dr. Olvera REASON FOR ADMISSION: 79 years old female with past medical history of hypertension, diabetes mellitus , CVA, was brought by her daughter for generalized weakness. Patient apparently fell out of the bed and was on the floor for long time , since she was unable to move. She denied fever and chills. No chest pain or shortness of breath. No focal weakness. Upon evaluation patient had low-grade fever and was tachycardic. Physical examination showed swelling and redness around the left ankle. Laboratory work-up revealed WBC of 2.9 , stable hemoglobin ,hematocrit and platelet count. BUN 20, creatinine 2.0. Lactic acid 1.8. Stable LFT. CK 96. Troponin negative. pro BNP 114. Albumin 3.5. Urinalysis revealed no evidence of urinary tract infection. CT of the head revealed no acute intracranial abnormality. Chronic small vessel ischemic changes and cerebral volume loss noted. Encephalomalacia in the right occipital lobe. Chest x-ray demonstrated no acute cardiopulmonary pathology. Mild chronic increased interstitial markings noted. In emergency department patient received 1 L of fluid and subsequently admitted for further management. CONSULTANTS: wire cutter Dr. Yates surgery Dr. Morales [facility]SE: Patient admitted to medical surgical floor. Patient started on the IV hydration and empiric antibiotics for cellulitis of left ankle. Venous duplex bilateral lower extremity revealed no evidence of acute DVT. Renal ultrasound revealed no evidence of hydronephrosis or stones. Normal bilateral kidney echogenicity. [employer] followed. With IV hydration renal parameters improved: creatinine from 2 down to 1.3 , and BUN from 20 down to 10. Per nephrology, patient also has chronic kidney disease stage III. Electrolytes were closely monitored. Nephrotoxic's were avoided. Left ankle x-ray revealed no evidence of displaced fracture or dislocation. Severe soft tissue swelling noted. Patient was provided with IV antibiotics. Blood cultures were negative. Diet texture provided as per speech therapist recommendation with aspiration precaution. Patient was working with physical therapist. Fall precaution maintained. Home medications continued. Patient had prior ulcer in the right medial ankle , which healed . Skin changes noted. Local care provided to ensure that it will not reopen or worsen. Patient clinically stabilized and was ready for discharge home with home health services for physical therapy and on oral antibiotic to complete the course. FINAL DIAGNOSES: Generalized weakness Acute renal failure-resolved Cellulitis left ankle -improved Hypertension Chronic kidney disease stage III Dehydration Diabetes mellitus History of CVA Failure to thrive DISCHARGE MEDICATIONS: See Medication Reconciliation list. DISCHARGE INSTRUCTIONS: Patient was discharged home with home health services. Follow up with primary care provider in one week. I have been assigned to dictate discharge summary for this account. I was not involved in the patient's management. Isaura Valle NP Feb 28, 2020 09:12
== END 2020-02-26 16:50 | disposition home or self-care (01) | DRG 683 ==
LOC: EMR 14:09 → EDBEDREQ 17:23 → 4E 17:30
DX: N17.9 Acute kidney failure, unspecified (principal); L03.116 Cellulitis of left lower limb; R62.7 Adult failure to thrive; Z68.32 Body mass index [BMI] 32.0-32.9, adult; E86.0 Dehydration; Z86.73 Personal history of transient ischemic attack (TIA), and cerebral infarction without residual deficits; I12.9 Hypertensive chronic kidney disease with stage 1 through stage 4 chronic kidney disease, or unspecified chronic kidney disease; E11.22 Type 2 diabetes mellitus with diabetic chronic kidney disease; N18.3 Chronic kidney disease, stage 3 (moderate); Z88.6 Allergy status to analgesic agent; Z88.2 Allergy status to sulfonamides; G62.9 Polyneuropathy, unspecified; E78.5 Hyperlipidemia, unspecified; Z91.81 History of falling; R60.9 Edema, unspecified
CPT/HCPCS: 36415; 70450; 71045; 76770; 80048; 80053; 80202; 81003; 82550; 82553; 82570; 82962; 83605; 83735; 83880; 84100; 84300; 84443; 84484; 85007; 85025; 85610; 85730; 87040; 93005; 93970; 96360; 99285; J1815; J7030; J8499